=== PATIENT | male | born 1950 | race Caucasian/White ===

== ENCOUNTER 2022-10-01 15:31 | Inpatient (IN) | payer MEDICARE ==
[2022-10-01] MEDS ORDERED: Diltiazem 125 MG/25 ML ONE (16:00)
[2022-10-01 16:25] LABS: #Basophils 0.1 thou/uL (0.0-0.2); #Eosinphils 0.2 thou/uL (0.0-0.7); #Lymphocytes 1.7 thou/uL (1.20-3.40); #Monocytes 0.8 thou/uL (0.11-0.59); %Basophils 0.8 % (0.0-1.0); %Eosinophils 2.2 % (0.0-10.0); %Lymphocytes 15.5 % (21.0-51.0); %Monocytes 7.5 % (0.0-10.0); Hemoglobin 12.5 g/dL (14.0-18.0); Mean Corpuscular HGB CONC 31.2 g/dL (32.0-36.0); Mean Corpuscular Hemoglobin 30.5 pg (27.0-31.0); Mean Platelet Volume 9.3 fL (7.4-10.4); Platelet Count 280 10x3/uL (130-400); RBC Distribution Width 15.8 % (11.5-14.5); Red Blood Cell (RBC) Count 4.08 mill/uL (4.70-6.10); White Blood Cell (WBC) Count 10.8 10x3/uL (4.8-10.8)
[2022-10-01 16:53] LABS: ALT (SGPT) 62 U/L (8-55); AST (SGOT) 43 U/L (5-34); Albumin 3.9 g/dL (3.4-4.8); Alkaline Phosphatase 150 U/L (40-110); Anion Gap 12 mmol/L (10-20); BUN (Urea Nitrogen) 17 mg/dL (8.4-25.7); Bilirubin, Total 1.8 mg/dL (0.2-1.2); CK (CPK) 22 U/L (30-200); Calc. Creatinine Clearance 0 mL/min (70-130); Calcium 9.4 mg/dL (7.8-10.44); Carbon Dioxide 28 mmol/L (23-31); Chloride 105 mmol/L (98-107); Estimated GFR 66; Globulin 3.5 g/dL (2.4-3.5); Glucose 148 mg/dL (80-115); Potassium 4.5 mmol/L (3.5-5.1); Protein, Total 7.4 g/dL (5.8-8.1); Sodium 140 mmol/L (136-145)
[2022-10-01] MEDS ORDERED: Bisacodyl 5 MG TAB PO PRN (17:50)
[2022-10-01] MEDS ORDERED: Acetaminophen 325 MG TAB PO PRN (17:50)
[2022-10-01] MEDS ORDERED: Ondansetron ODT 4 MG TAB PO PRN (17:50)
[2022-10-01] MEDS ORDERED: Guaifenesin DM 100-10/5 ML UDCUP PO PRN (17:50)
[2022-10-01] MEDS ORDERED: Ondansetron PF 4 MG/2 ML Vial IVP PRN (17:50)
[2022-10-01] MEDS ORDERED: Acetaminophen 650 MG Suppository PR PRN (17:50)
[2022-10-01] MEDS ORDERED: Senokot S 8.6-50 MG TAB PO PRN (17:50)
[2022-10-01] MEDS ORDERED: Diltiazem 125 MG in Sodium Chloride 0.9% 100 ML IVPB SCH (19:15)
[2022-10-01 19:49] LABS: Troponin I 0.018 ng/mL (< 0.028)
[2022-10-01] MEDS: Atorvastatin Calcium 40 MG TAB PO SCH (20:47)
[2022-10-01] MEDS ORDERED: Acetaminophen 325 MG TAB ONE (20:48)
[2022-10-01 21:47] LABS: SARS-CoV-2 NAA Rapid Test Not Detected (NotDetected)
[2022-10-01] MEDS ORDERED: Morphine 4 MG/ML VIAL SLOW IVP SCH (22:45)
[2022-10-01] MEDS ORDERED: Morphine 4 MG/ML VIAL ONE (22:47)
[2022-10-01 23:27] LABS: Troponin I 0.026 ng/mL (< 0.028)
[2022-10-02] MEDS ORDERED: traMADol HCl 50 MG TAB ONE ×3 (02:43→12:54)
[2022-10-02] MEDS: traMADol HCl 50 MG TAB PO PRN ×4 (02:46→23:53)
[2022-10-02 04:52] LABS: Bilirubin Negative (Negative); Blood, Urine 3+ (Negative); Clarity Extra Turbid (Clear); Glucose, Urine (Dipstick) Normal (Negative); Ketone, Urine Negative (Negative); Leukocyte 500 Leu/uL (Negative); Nitrite Negative (Negative); Protein, Urine (Dipstick) 20 mg/dL (Neg-Trace); Specific Gravity, Urine 1.013 (1.002-1.036); Squamous Epithelial None Seen HPF (0-3); Urobilinogen Normal mg/dL (Less than 2)
[2022-10-02 04:56] LABS: RBC/HPF 0-3 HPF (0-3)
[2022-10-02 04:57] LABS: Bacteria/HPF 3+ HPF (None Seen); Yeast-Hyphae 2+ HPF (None Seen)
[2022-10-02 07:14] LABS: ALT (SGPT) 44 U/L (8-55); AST (SGOT) 26 U/L (5-34); Albumin 3.2 g/dL (3.4-4.8); Alkaline Phosphatase 125 U/L (40-110); Anion Gap 13 mmol/L (10-20); BUN (Urea Nitrogen) 14 mg/dL (8.4-25.7); Bilirubin, Total 1.6 mg/dL (0.2-1.2); Calc. Creatinine Clearance 0 mL/min (70-130); Calcium 8.8 mg/dL (7.8-10.44); Carbon Dioxide 18 mmol/L (23-31); Chloride 109 mmol/L (98-107); Estimated GFR 93; Glucose 86 mg/dL (80-115); Magnesium 1.8 mg/dL (1.6-2.6); Potassium 3.9 mmol/L (3.5-5.1); Protein, Total 6.2 g/dL (5.8-8.1); Sodium 136 mmol/L (136-145)
[2022-10-02 08:18] LABS: #Basophils 0.1 thou/uL (0.0-0.2); #Eosinphils 0.6 thou/uL (0.0-0.7); #Lymphocytes 1.9 thou/uL (1.20-3.40); #Monocytes 0.9 thou/uL (0.11-0.59); #Neutrophils 5.4 thou/uL (1.40-6.50); %Eosinophils 7.2 % (0.0-10.0); %Lymphocytes 21.6 % (21.0-51.0); %Neutrophils 60.3 % (42.0-75.0); Hemoglobin 11.5 g/dL (14.0-18.0); Mean Corpuscular HGB CONC 32.4 g/dL (32.0-36.0); Mean Corpuscular Hemoglobin 32.3 pg (27.0-31.0); Mean Corpuscular Volume 99.5 fl (78.0-98.0); Mean Platelet Volume 9.3 fL (7.4-10.4); Platelet Count 214 10x3/uL (130-400); RBC Distribution Width 15.6 % (11.5-14.5); Red Blood Cell (RBC) Count 3.58 mill/uL (4.70-6.10); White Blood Cell (WBC) Count 8.9 10x3/uL (4.8-10.8)
[2022-10-02] MEDS ORDERED: Aspirin Chewable 81 MG TAB ONE (08:41)
[2022-10-02] MEDS ORDERED: Metoprolol Tartrate 50 MG TAB ONE ×2 (08:41→08:44)
[2022-10-02] MEDS: Finasteride 5 MG TAB PO SCH (08:54)
[2022-10-02] MEDS: Aspirin 81 mg Enteric Coated Tablet PO SCH (08:54)
[2022-10-02] MEDS ORDERED: Metoprolol Tartrate 100 MG TAB PO SCH (09:00)
[2022-10-02] MEDS ORDERED: Sodium Chloride 0.9% 500 ML IV SCH (11:30)
[2022-10-02] MEDS: Metoprolol Tartrate 50 MG TAB PO SCH (23:54)
[2022-10-02] MEDS: Atorvastatin Calcium 40 MG TAB PO SCH (23:54)
[2022-10-03] MEDS: traMADol HCl 50 MG TAB PO PRN ×2 (06:40→20:03)
[2022-10-03] MEDS: Finasteride 5 MG TAB PO SCH (09:40)
[2022-10-03] MEDS: Metoprolol Tartrate 50 MG TAB PO SCH ×2 (09:41→20:03)
[2022-10-03] MEDS: Aspirin 81 mg Enteric Coated Tablet PO SCH (09:41)
[2022-10-03] MEDS: Atorvastatin Calcium 40 MG TAB PO SCH (20:03)
[2022-10-04] MEDS: Aspirin 81 mg Enteric Coated Tablet PO SCH (09:25)
[2022-10-04] MEDS: Finasteride 5 MG TAB PO SCH (09:25)
[2022-10-04] MEDS: Metoprolol Tartrate 50 MG TAB PO SCH (09:25)
[2022-10-04] MEDS ORDERED: Electrolyte Replacement Protocol 1 EACH FS SCH (10:00)
[2022-10-04] MEDS ORDERED: Magnesium 2 GM/50 ML(in water) 2 GM in Premix Bag 1 BAG IVPB SCH (12:00)
[2022-10-04 13:29] LABS: #Basophils 0.1 thou/uL (0.0-0.2); #Eosinphils 0.2 thou/uL (0.0-0.7); #Lymphocytes 1.2 thou/uL (1.20-3.40); #Neutrophils 8.6 thou/uL (1.40-6.50); %Basophils 0.5 % (0.0-1.0); %Eosinophils 2.2 % (0.0-10.0); %Lymphocytes 10.8 % (21.0-51.0); %Monocytes 9.1 % (0.0-10.0); %Neutrophils 77.4 % (42.0-75.0); Hemoglobin 12.5 g/dL (14.0-18.0); Mean Corpuscular HGB CONC 31.1 g/dL (32.0-36.0); Mean Corpuscular Hemoglobin 31.8 pg (27.0-31.0); Mean Platelet Volume 9.2 fL (7.4-10.4); Platelet Count 236 10x3/uL (130-400); RBC Distribution Width 15.6 % (11.5-14.5); Red Blood Cell (RBC) Count 3.92 mill/uL (4.70-6.10); White Blood Cell (WBC) Count 11.1 10x3/uL (4.8-10.8)
[2022-10-04 13:51] LABS: Anion Gap 17 mmol/L (10-20); BUN (Urea Nitrogen) 18 mg/dL (8.4-25.7); Calc. Creatinine Clearance 64 mL/min (70-130); Calcium 9.3 mg/dL (7.8-10.44); Carbon Dioxide 21 mmol/L (23-31); Chloride 100 mmol/L (98-107); Estimated GFR 71; Glucose 98 mg/dL (80-115); Potassium 4.2 mmol/L (3.5-5.1); Sodium 134 mmol/L (136-145)
[2022-10-04] MEDS: Metoprolol Tartrate 100 MG TAB PO SCH (20:27)
[2022-10-04] MEDS: Atorvastatin Calcium 40 MG TAB PO SCH (20:27)
[2022-10-05] MEDS: Acetaminophen 325 MG TAB PO PRN ×3 (04:20→18:24)
[2022-10-05 05:04] LABS: #Basophils 0.1 thou/uL (0.0-0.2); #Eosinphils 0.4 thou/uL (0.0-0.7); #Monocytes 1.2 thou/uL (0.11-0.59); #Neutrophils 6.1 thou/uL (1.40-6.50); %Basophils 0.5 % (0.0-1.0); %Eosinophils 3.6 % (0.0-10.0); %Neutrophils 62.9 % (42.0-75.0); Hemoglobin 12.2 g/dL (14.0-18.0); Mean Corpuscular HGB CONC 33.3 g/dL (32.0-36.0); Mean Corpuscular Hemoglobin 32.7 pg (27.0-31.0); Mean Corpuscular Volume 98.4 fl (78.0-98.0); Mean Platelet Volume 9.7 fL (7.4-10.4); Platelet Count 225 10x3/uL (130-400); RBC Distribution Width 15.2 % (11.5-14.5); Red Blood Cell (RBC) Count 3.73 mill/uL (4.70-6.10); White Blood Cell (WBC) Count 9.7 10x3/uL (4.8-10.8)
[2022-10-05 05:08] LABS: Anion Gap 16 mmol/L (10-20); BUN (Urea Nitrogen) 16 mg/dL (8.4-25.7); Calc. Creatinine Clearance 78 mL/min (70-130); Calcium 9.2 mg/dL (7.8-10.44); Carbon Dioxide 20 mmol/L (23-31); Chloride 104 mmol/L (98-107); Estimated GFR 90; Glucose 84 mg/dL (80-115); Phosphorus 3.2 mg/dL (2.3-4.7); Potassium 3.7 mmol/L (3.5-5.1); Sodium 136 mmol/L (136-145)
[2022-10-05] MEDS ORDERED: Morphine 4 MG/ML VIAL SLOW IVP SCH (06:00)
[2022-10-05] MEDS ORDERED: Magnesium 2 GM/50 ML(in water) 2 GM in Premix Bag 1 BAG IVPB SCH (08:00)
[2022-10-05] MEDS: Metoprolol Tartrate 100 MG TAB PO SCH ×2 (09:40→20:06)
[2022-10-05] MEDS: Finasteride 5 MG TAB PO SCH (09:40)
[2022-10-05] MEDS: Aspirin 81 mg Enteric Coated Tablet PO SCH (09:40)
[2022-10-05] MEDS ORDERED: Acetaminophen/Codeine 30-300mg Tablet PO PRN (10:02)
[2022-10-05] MEDS: Lidocaine 5% Patch TD SCH (10:32)
[2022-10-05] MEDS: traMADol HCl 50 MG TAB PO PRN ×2 (12:41→18:25)
[2022-10-05] MEDS: Atorvastatin Calcium 40 MG TAB PO SCH (20:06)
[2022-10-05] MEDS: Senokot S 8.6-50 MG TAB PO SCH (20:06)
[2022-10-05] MEDS: Cholecalciferol 1,000 UNITS (25 MCG) TAB PO SCH (20:06)
[2022-10-06] MEDS: Acetaminophen 325 MG TAB PO PRN ×2 (00:31→09:03)
[2022-10-06] MEDS: traMADol HCl 50 MG TAB PO PRN ×5 (00:32→23:55)
[2022-10-06] MEDS: Transdermal Patch Removal TOP SCH (00:36)
[2022-10-06] MEDS: Senokot S 8.6-50 MG TAB PO SCH ×2 (09:02→20:48)
[2022-10-06] MEDS: Finasteride 5 MG TAB PO SCH (09:02)
[2022-10-06] MEDS: Folic Acid 1 MG TAB PO SCH (09:02)
[2022-10-06] MEDS: Aspirin 81 mg Enteric Coated Tablet PO SCH (09:02)
[2022-10-06] MEDS: Cyanocobalamin (Vitamin B-12) 1,000 MCG TAB PO SCH (09:03)
[2022-10-06] MEDS: Metoprolol Tartrate 100 MG TAB PO SCH ×2 (09:03→20:49)
[2022-10-06] MEDS: Multivit, Therapeutic 1 TAB PO SCH (09:03)
[2022-10-06] MEDS: Lidocaine 5% Patch TD SCH (12:08)
[2022-10-06] MEDS ORDERED: Acetaminophen 325 MG Suppository PR PRN (14:47)
[2022-10-06] MEDS: Acetaminophen 325 MG TAB PO SCH ×2 (15:32→20:48)
[2022-10-06] MEDS ORDERED: Polyethylene Glycol 3350 17 GM Packet PO PRN (15:37)
[2022-10-06] MEDS: Nicotine 14 MG PATCH TD PRN (15:39)
[2022-10-06] MEDS: Atorvastatin Calcium 40 MG TAB PO SCH (20:49)
[2022-10-06] MEDS: Cholecalciferol 1,000 UNITS (25 MCG) TAB PO SCH (20:49)
[2022-10-07] MEDS: Transdermal Patch Removal TOP SCH ×2 (00:59→23:55)
[2022-10-07] MEDS ORDERED: Morphine 4 MG/ML VIAL SLOW IVP SCH (02:15)
[2022-10-07] MEDS: traMADol HCl 50 MG TAB PO PRN ×4 (04:16→19:02)
[2022-10-07] MEDS: Acetaminophen 325 MG TAB PO SCH ×3 (08:06→20:15)
[2022-10-07] MEDS: Cyanocobalamin (Vitamin B-12) 1,000 MCG TAB PO SCH (08:07)
[2022-10-07] MEDS: Finasteride 5 MG TAB PO SCH (08:07)
[2022-10-07] MEDS: Senokot S 8.6-50 MG TAB PO SCH ×2 (08:07→20:16)
[2022-10-07] MEDS: Multivit, Therapeutic 1 TAB PO SCH (08:07)
[2022-10-07] MEDS: Aspirin 81 mg Enteric Coated Tablet PO SCH (08:07)
[2022-10-07] MEDS: Metoprolol Tartrate 100 MG TAB PO SCH ×2 (08:08→20:16)
[2022-10-07] MEDS: Folic Acid 1 MG TAB PO SCH (08:08)
[2022-10-07] MEDS ORDERED: HYDROcodone/Acetaminophen 7.5/325 mg Tablet PO SCH ×2 (09:00→16:45)
[2022-10-07] MEDS: Lidocaine 5% Patch TD SCH (12:41)
[2022-10-07] MEDS: Nicotine 14 MG PATCH TD PRN (15:50)
[2022-10-07] MEDS: Cholecalciferol 1,000 UNITS (25 MCG) TAB PO SCH (20:16)
[2022-10-07] MEDS: Atorvastatin Calcium 40 MG TAB PO SCH (20:16)
[2022-10-08] MEDS: traMADol HCl 50 MG TAB PO PRN ×4 (05:14→21:27)
[2022-10-08] MEDS: Cyanocobalamin (Vitamin B-12) 1,000 MCG TAB PO SCH (09:30)
[2022-10-08] MEDS: Acetaminophen 325 MG TAB PO SCH ×3 (09:31→21:24)
[2022-10-08] MEDS: Finasteride 5 MG TAB PO SCH (09:32)
[2022-10-08] MEDS: Metoprolol Tartrate 100 MG TAB PO SCH ×2 (09:32→21:23)
[2022-10-08] MEDS: Aspirin 81 mg Enteric Coated Tablet PO SCH (09:32)
[2022-10-08] MEDS: Folic Acid 1 MG TAB PO SCH (09:32)
[2022-10-08] MEDS: Multivit, Therapeutic 1 TAB PO SCH (09:32)
[2022-10-08] MEDS: Senokot S 8.6-50 MG TAB PO SCH ×2 (09:33→21:24)
[2022-10-08] MEDS: Lidocaine 5% Patch TD SCH (12:00)
[2022-10-08] MEDS: Bisacodyl 10 MG SUPP PR PRN (12:05)
[2022-10-08] MEDS: Polyethylene Glycol 3350 17 GM Packet PO SCH (21:23)
[2022-10-08] MEDS: Cholecalciferol 1,000 UNITS (25 MCG) TAB PO SCH (21:23)
[2022-10-08] MEDS: Atorvastatin Calcium 40 MG TAB PO SCH (21:23)
[2022-10-08] MEDS: Transdermal Patch Removal TOP SCH (22:59)
[2022-10-09] MEDS: traMADol HCl 50 MG TAB PO PRN ×4 (05:44→21:10)
[2022-10-09 07:23] LABS: Hemoglobin 12.7 g/dL (14.0-18.0); Mean Corpuscular HGB CONC 33.1 g/dL (32.0-36.0); Mean Corpuscular Hemoglobin 32.2 pg (27.0-31.0); Mean Corpuscular Volume 97.3 fl (78.0-98.0); Mean Platelet Volume 9.7 fL (7.4-10.4); Platelet Count 253 10x3/uL (130-400); RBC Distribution Width 15.3 % (11.5-14.5); Red Blood Cell (RBC) Count 3.94 mill/uL (4.70-6.10); White Blood Cell (WBC) Count 10.8 10x3/uL (4.8-10.8)
[2022-10-09 07:40] LABS: Anion Gap 16 mmol/L (10-20); BUN (Urea Nitrogen) 20 mg/dL (8.4-25.7); Calc. Creatinine Clearance 66 mL/min (70-130); Calcium 9.4 mg/dL (7.8-10.44); Carbon Dioxide 21 mmol/L (23-31); Chloride 104 mmol/L (98-107); Estimated GFR 73; Glucose 99 mg/dL (80-115); Sodium 137 mmol/L (136-145)
[2022-10-09] MEDS: Acetaminophen 325 MG TAB PO SCH ×3 (08:36→21:05)
[2022-10-09] MEDS: Finasteride 5 MG TAB PO SCH (08:37)
[2022-10-09] MEDS: Folic Acid 1 MG TAB PO SCH (08:37)
[2022-10-09] MEDS: Aspirin 81 mg Enteric Coated Tablet PO SCH (08:37)
[2022-10-09] MEDS: Senokot S 8.6-50 MG TAB PO SCH ×2 (08:37→21:05)
[2022-10-09] MEDS: Metoprolol Tartrate 100 MG TAB PO SCH ×2 (08:37→21:08)
[2022-10-09] MEDS: Multivit, Therapeutic 1 TAB PO SCH (08:37)
[2022-10-09] MEDS: Cyanocobalamin (Vitamin B-12) 1,000 MCG TAB PO SCH (08:37)
[2022-10-09] MEDS: Polyethylene Glycol 3350 17 GM Packet PO SCH ×2 (08:38→21:04)
[2022-10-09] MEDS: Lidocaine 5% Patch TD SCH (12:34)
[2022-10-09] MEDS: Atorvastatin Calcium 40 MG TAB PO SCH (21:07)
[2022-10-09] MEDS: Cholecalciferol 1,000 UNITS (25 MCG) TAB PO SCH (21:08)
[2022-10-09] MEDS: Nicotine 14 MG PATCH TD PRN (21:10)
[2022-10-10] MEDS: Transdermal Patch Removal TOP SCH ×2 (00:34→21:59)
[2022-10-10] MEDS: traMADol HCl 50 MG TAB PO PRN ×3 (02:03→17:33)
[2022-10-10] MEDS: Acetaminophen 325 MG TAB PO SCH ×3 (09:48→21:19)
[2022-10-10] MEDS: Aspirin 81 mg Enteric Coated Tablet PO SCH (09:48)
[2022-10-10] MEDS: Senokot S 8.6-50 MG TAB PO SCH ×2 (09:49→20:44)
[2022-10-10] MEDS: Multivit, Therapeutic 1 TAB PO SCH (09:49)
[2022-10-10] MEDS: Metoprolol Tartrate 100 MG TAB PO SCH ×2 (09:49→20:43)
[2022-10-10] MEDS: Folic Acid 1 MG TAB PO SCH (09:49)
[2022-10-10] MEDS: Finasteride 5 MG TAB PO SCH (09:49)
[2022-10-10] MEDS: Cyanocobalamin (Vitamin B-12) 1,000 MCG TAB PO SCH (09:50)
[2022-10-10] MEDS: Lidocaine 5% Patch TD SCH (09:50)
[2022-10-10] MEDS ORDERED: Morphine 4 MG/ML VIAL SLOW IVP SCH (12:45)
[2022-10-10] MEDS: Atorvastatin Calcium 40 MG TAB PO SCH (20:43)
[2022-10-10] MEDS: Cholecalciferol 1,000 UNITS (25 MCG) TAB PO SCH (20:44)
[2022-10-10] MEDS: Polyethylene Glycol 3350 17 GM Packet PO PRN (20:45)
[2022-10-10] MEDS: HYDROcodone/Acetaminophen 5/325 mg Tablet PO PRN (21:04)
[2022-10-10] MEDS: Nicotine 14 MG PATCH TD PRN (21:11)
[2022-10-11] MEDS: traMADol HCl 50 MG TAB PO PRN (00:25)
[2022-10-11] MEDS: HYDROcodone/Acetaminophen 5/325 mg Tablet PO PRN ×3 (02:45→17:18)
[2022-10-11] MEDS ORDERED: Morphine 4 MG/ML VIAL SLOW IVP SCH (03:45)
[2022-10-11 05:24] LABS: #Basophils 0.1 thou/uL (0.0-0.2); #Eosinphils 0.6 thou/uL (0.0-0.7); #Lymphocytes 2.8 thou/uL (1.20-3.40); #Neutrophils 6.4 thou/uL (1.40-6.50); %Basophils 0.5 % (0.0-1.0); %Eosinophils 5.6 % (0.0-10.0); %Lymphocytes 25.8 % (21.0-51.0); %Monocytes 9.5 % (0.0-10.0); %Neutrophils 58.7 % (42.0-75.0); Hemoglobin 12.4 g/dL (14.0-18.0); Mean Corpuscular HGB CONC 32.3 g/dL (32.0-36.0); Mean Corpuscular Hemoglobin 31.6 pg (27.0-31.0); Mean Corpuscular Volume 97.8 fl (78.0-98.0); Mean Platelet Volume 9.3 fL (7.4-10.4); Platelet Count 226 10x3/uL (130-400); RBC Distribution Width 15.2 % (11.5-14.5); Red Blood Cell (RBC) Count 3.93 mill/uL (4.70-6.10); White Blood Cell (WBC) Count 10.9 10x3/uL (4.8-10.8)
[2022-10-11 05:45] LABS: ALT (SGPT) 14 U/L (8-55); AST (SGOT) 14 U/L (5-34); Albumin 3.6 g/dL (3.4-4.8); Alkaline Phosphatase 97 U/L (40-110); Anion Gap 13 mmol/L (10-20); BUN (Urea Nitrogen) 28 mg/dL (8.4-25.7); Bilirubin, Total 0.9 mg/dL (0.2-1.2); Calc. Creatinine Clearance 65 mL/min (70-130); Calcium 9.4 mg/dL (7.8-10.44); Carbon Dioxide 22 mmol/L (23-31); Chloride 105 mmol/L (98-107); Estimated GFR 73; Globulin 3.2 g/dL (2.4-3.5); Glucose 94 mg/dL (80-115); Potassium 4.1 mmol/L (3.5-5.1); Protein, Total 6.8 g/dL (5.8-8.1); Sodium 136 mmol/L (136-145)
[2022-10-11] MEDS: Aspirin 81 mg Enteric Coated Tablet PO SCH (09:21)
[2022-10-11] MEDS: Multivit, Therapeutic 1 TAB PO SCH (09:21)
[2022-10-11] MEDS: Acetaminophen 325 MG TAB PO SCH ×3 (09:21→20:27)
[2022-10-11] MEDS: Finasteride 5 MG TAB PO SCH (09:21)
[2022-10-11] MEDS: Folic Acid 1 MG TAB PO SCH (09:21)
[2022-10-11] MEDS: Metoprolol Tartrate 100 MG TAB PO SCH ×2 (09:21→20:28)
[2022-10-11] MEDS: Cilostazol 100 MG TAB PO SCH (09:21)
[2022-10-11] MEDS: Cyanocobalamin (Vitamin B-12) 1,000 MCG TAB PO SCH (09:21)
[2022-10-11] MEDS: Polyethylene Glycol 3350 17 GM Packet PO PRN (09:21)
[2022-10-11] MEDS: Senokot S 8.6-50 MG TAB PO SCH ×2 (09:21→20:27)
[2022-10-11] MEDS: Morphine 4 MG/ML VIAL SLOW IVP PRN ×2 (12:10→20:28)
[2022-10-11] MEDS: Lidocaine 5% Patch TD SCH (12:12)
[2022-10-11] MEDS: Nicotine 14 MG PATCH TD PRN (20:26)
[2022-10-11] MEDS: Cholecalciferol 1,000 UNITS (25 MCG) TAB PO SCH (20:27)
[2022-10-11] MEDS: Atorvastatin Calcium 40 MG TAB PO SCH (20:28)
[2022-10-11] MEDS: Transdermal Patch Removal TOP SCH (23:24)
[2022-10-12] MEDS: HYDROcodone/Acetaminophen 5/325 mg Tablet PO PRN ×4 (01:34→20:27)
[2022-10-12] MEDS: Morphine 4 MG/ML VIAL SLOW IVP PRN ×2 (04:22→12:13)
[2022-10-12] MEDS: Lidocaine 5% Patch TD SCH (07:50)
[2022-10-12] MEDS: Cilostazol 100 MG TAB PO SCH (08:06)
[2022-10-12] MEDS: Finasteride 5 MG TAB PO SCH (08:06)
[2022-10-12] MEDS: Polyethylene Glycol 3350 17 GM Packet PO PRN (08:06)
[2022-10-12] MEDS: Aspirin 81 mg Enteric Coated Tablet PO SCH (08:06)
[2022-10-12] MEDS: Acetaminophen 325 MG TAB PO SCH ×3 (08:06→20:26)
[2022-10-12] MEDS: Cyanocobalamin (Vitamin B-12) 1,000 MCG TAB PO SCH (08:07)
[2022-10-12] MEDS: Multivit, Therapeutic 1 TAB PO SCH (08:07)
[2022-10-12] MEDS: Folic Acid 1 MG TAB PO SCH (08:07)
[2022-10-12] MEDS: Senokot S 8.6-50 MG TAB PO SCH ×2 (08:07→20:25)
[2022-10-12] MEDS: Metoprolol Tartrate 100 MG TAB PO SCH ×2 (08:07→20:25)
[2022-10-12] MEDS: Cholecalciferol 1,000 UNITS (25 MCG) TAB PO SCH (20:26)
[2022-10-12] MEDS: Atorvastatin Calcium 40 MG TAB PO SCH (20:29)
[2022-10-12] MEDS: Nicotine 14 MG PATCH TD PRN (20:33)
[2022-10-13] MEDS: Morphine 4 MG/ML VIAL SLOW IVP PRN ×3 (00:44→20:30)
[2022-10-13] MEDS: Transdermal Patch Removal TOP SCH ×2 (01:05→19:21)
[2022-10-13] MEDS: HYDROcodone/Acetaminophen 5/325 mg Tablet PO PRN ×2 (06:35→12:56)
[2022-10-13] MEDS: Acetaminophen 325 MG TAB PO SCH ×3 (08:33→20:05)
[2022-10-13] MEDS: Cilostazol 100 MG TAB PO SCH (08:33)
[2022-10-13] MEDS: Aspirin 81 mg Enteric Coated Tablet PO SCH (08:33)
[2022-10-13] MEDS: Finasteride 5 MG TAB PO SCH (08:34)
[2022-10-13] MEDS: Metoprolol Tartrate 100 MG TAB PO SCH ×2 (08:34→20:04)
[2022-10-13] MEDS: Cyanocobalamin (Vitamin B-12) 1,000 MCG TAB PO SCH (08:34)
[2022-10-13] MEDS: Multivit, Therapeutic 1 TAB PO SCH (08:34)
[2022-10-13] MEDS: Folic Acid 1 MG TAB PO SCH (08:34)
[2022-10-13] MEDS: Senokot S 8.6-50 MG TAB PO SCH ×2 (08:35→19:20)
[2022-10-13] MEDS: Lidocaine 5% Patch TD SCH (10:14)
[2022-10-13] MEDS: Nicotine 14 MG PATCH TD PRN (20:03)
[2022-10-13] MEDS: Cholecalciferol 1,000 UNITS (25 MCG) TAB PO SCH (20:04)
[2022-10-13] MEDS: Atorvastatin Calcium 40 MG TAB PO SCH (20:04)
[2022-10-13] MEDS ORDERED: Morphine 4 MG/ML VIAL SLOW IVP SCH (21:45)
[2022-10-14] MEDS: Senokot S 8.6-50 MG TAB PO SCH ×2 (08:45→21:16)
[2022-10-14] MEDS: Lidocaine 5% Patch TD SCH (08:45)
[2022-10-14] MEDS: Morphine 4 MG/ML VIAL SLOW IVP PRN ×3 (08:46→19:05)
[2022-10-14] MEDS: Cyanocobalamin (Vitamin B-12) 1,000 MCG TAB PO SCH (08:47)
[2022-10-14] MEDS: Aspirin 81 mg Enteric Coated Tablet PO SCH (08:47)
[2022-10-14] MEDS: Cilostazol 100 MG TAB PO SCH (08:47)
[2022-10-14] MEDS: Acetaminophen 325 MG TAB PO SCH ×2 (08:47→16:00)
[2022-10-14] MEDS: Finasteride 5 MG TAB PO SCH (08:47)
[2022-10-14] MEDS: Multivit, Therapeutic 1 TAB PO SCH (08:47)
[2022-10-14] MEDS: Folic Acid 1 MG TAB PO SCH (08:47)
[2022-10-14] MEDS: Metoprolol Tartrate 100 MG TAB PO SCH ×2 (08:48→21:16)
[2022-10-14] MEDS ORDERED: HYDROcodone/Acetaminophen 5/325 mg Tablet PO SCH (18:30)
[2022-10-14] MEDS: Nicotine 14 MG PATCH TD SCH (21:14)
[2022-10-14] MEDS: HYDROcodone/Acetaminophen 5/325 mg Tablet PO PRN (21:15)
[2022-10-14] MEDS: Cholecalciferol 1,000 UNITS (25 MCG) TAB PO SCH (21:15)
[2022-10-14] MEDS: Atorvastatin Calcium 40 MG TAB PO SCH (21:16)
[2022-10-14] MEDS: Transdermal Patch Removal TOP SCH (21:20)
[2022-10-15] MEDS: HYDROcodone/Acetaminophen 5/325 mg Tablet PO PRN ×3 (01:07→16:15)
[2022-10-15] MEDS: Morphine 4 MG/ML VIAL SLOW IVP PRN ×3 (04:30→21:03)
[2022-10-15] MEDS: Cilostazol 100 MG TAB PO SCH (08:22)
[2022-10-15] MEDS: Cyanocobalamin (Vitamin B-12) 1,000 MCG TAB PO SCH (08:22)
[2022-10-15] MEDS: Finasteride 5 MG TAB PO SCH (08:22)
[2022-10-15] MEDS: Aspirin 81 mg Enteric Coated Tablet PO SCH (08:22)
[2022-10-15] MEDS: Multivit, Therapeutic 1 TAB PO SCH (08:22)
[2022-10-15] MEDS: Metoprolol Tartrate 100 MG TAB PO SCH ×2 (08:22→21:04)
[2022-10-15] MEDS: Folic Acid 1 MG TAB PO SCH (08:22)
[2022-10-15] MEDS: Senokot S 8.6-50 MG TAB PO SCH ×2 (09:30→21:04)
[2022-10-15] MEDS: Lidocaine 5% Patch TD SCH (11:50)
[2022-10-15] MEDS: Transdermal Patch Removal TOP SCH (20:33)
[2022-10-15] MEDS: Atorvastatin Calcium 40 MG TAB PO SCH (21:04)
[2022-10-15] MEDS: Cholecalciferol 1,000 UNITS (25 MCG) TAB PO SCH (21:04)
[2022-10-15] MEDS: Nicotine 14 MG PATCH TD SCH (21:04)
[2022-10-16] MEDS: HYDROcodone/Acetaminophen 5/325 mg Tablet PO PRN ×5 (01:40→19:07)
[2022-10-16] MEDS: Cilostazol 100 MG TAB PO SCH (08:26)
[2022-10-16] MEDS: Aspirin 81 mg Enteric Coated Tablet PO SCH (08:27)
[2022-10-16] MEDS: Finasteride 5 MG TAB PO SCH (08:27)
[2022-10-16] MEDS: Cyanocobalamin (Vitamin B-12) 1,000 MCG TAB PO SCH (08:27)
[2022-10-16] MEDS: Senokot S 8.6-50 MG TAB PO SCH ×2 (08:27→20:59)
[2022-10-16] MEDS: Metoprolol Tartrate 100 MG TAB PO SCH ×2 (08:27→20:59)
[2022-10-16] MEDS: Folic Acid 1 MG TAB PO SCH (08:27)
[2022-10-16] MEDS: Multivit, Therapeutic 1 TAB PO SCH (08:27)
[2022-10-16] MEDS: Lidocaine 5% Patch TD SCH (11:06)
[2022-10-16] MEDS: Transdermal Patch Removal TOP SCH (20:59)
[2022-10-16] MEDS: Atorvastatin Calcium 40 MG TAB PO SCH (20:59)
[2022-10-16] MEDS: Cholecalciferol 1,000 UNITS (25 MCG) TAB PO SCH (20:59)
[2022-10-16] MEDS: Morphine 4 MG/ML VIAL SLOW IVP PRN (20:59)
[2022-10-16] MEDS: Nicotine 14 MG PATCH TD SCH (20:59)
[2022-10-17] MEDS: Morphine 4 MG/ML VIAL SLOW IVP PRN ×3 (05:05→19:21)
[2022-10-17] MEDS: HYDROcodone/Acetaminophen 5/325 mg Tablet PO PRN ×4 (06:17→23:10)
[2022-10-17] MEDS: Aspirin 81 mg Enteric Coated Tablet PO SCH (09:02)
[2022-10-17] MEDS: Metoprolol Tartrate 100 MG TAB PO SCH ×2 (09:02→20:58)
[2022-10-17] MEDS: Multivit, Therapeutic 1 TAB PO SCH (09:02)
[2022-10-17] MEDS: Folic Acid 1 MG TAB PO SCH (09:02)
[2022-10-17] MEDS: Finasteride 5 MG TAB PO SCH (09:02)
[2022-10-17] MEDS: Senokot S 8.6-50 MG TAB PO SCH ×2 (09:02→20:58)
[2022-10-17] MEDS: Cilostazol 100 MG TAB PO SCH (09:02)
[2022-10-17] MEDS: Cyanocobalamin (Vitamin B-12) 1,000 MCG TAB PO SCH (09:02)
[2022-10-17] MEDS: Lidocaine 5% Patch TD SCH (11:09)
[2022-10-17] MEDS: Nicotine 14 MG PATCH TD SCH (19:20)
[2022-10-17] MEDS: Cholecalciferol 1,000 UNITS (25 MCG) TAB PO SCH (20:58)
[2022-10-17] MEDS: Atorvastatin Calcium 40 MG TAB PO SCH (20:58)
[2022-10-17] MEDS: Transdermal Patch Removal TOP SCH (21:02)
[2022-10-18] MEDS: HYDROcodone/Acetaminophen 5/325 mg Tablet PO PRN ×3 (03:49→20:05)
[2022-10-18] MEDS: Morphine 4 MG/ML VIAL SLOW IVP PRN ×3 (04:32→19:59)
[2022-10-18] MEDS: Multivit, Therapeutic 1 TAB PO SCH (09:50)
[2022-10-18] MEDS: Metoprolol Tartrate 100 MG TAB PO SCH ×2 (09:50→20:04)
[2022-10-18] MEDS: Cyanocobalamin (Vitamin B-12) 1,000 MCG TAB PO SCH (09:50)
[2022-10-18] MEDS: Senokot S 8.6-50 MG TAB PO SCH ×2 (09:50→20:41)
[2022-10-18] MEDS: Cilostazol 100 MG TAB PO SCH (09:50)
[2022-10-18] MEDS: Folic Acid 1 MG TAB PO SCH (09:50)
[2022-10-18] MEDS: Aspirin 81 mg Enteric Coated Tablet PO SCH (09:50)
[2022-10-18] MEDS: Finasteride 5 MG TAB PO SCH (09:50)
[2022-10-18] MEDS: Lidocaine 5% Patch TD SCH (09:52)
[2022-10-18] MEDS: Nicotine 14 MG PATCH TD SCH (20:05)
[2022-10-18] MEDS: Cholecalciferol 1,000 UNITS (25 MCG) TAB PO SCH (20:06)
[2022-10-18] MEDS: Atorvastatin Calcium 40 MG TAB PO SCH (20:06)
[2022-10-18] MEDS: Transdermal Patch Removal TOP SCH (23:58)
[2022-10-19] MEDS: HYDROcodone/Acetaminophen 5/325 mg Tablet PO PRN ×5 (01:43→22:07)
[2022-10-19] MEDS: Morphine 4 MG/ML VIAL SLOW IVP PRN ×5 (01:45→20:43)
[2022-10-19] MEDS ORDERED: Sodium Chloride 0.9% 500 ML IV SCH (06:45)
[2022-10-19 07:15] LABS: Anion Gap 15 mmol/L (10-20); BUN (Urea Nitrogen) 23 mg/dL (8.4-25.7); Calc. Creatinine Clearance 63 mL/min (70-130); Calcium 9.6 mg/dL (7.8-10.44); Carbon Dioxide 19 mmol/L (23-31); Chloride 106 mmol/L (98-107); Estimated GFR 70; Glucose 96 mg/dL (80-115); Magnesium 1.8 mg/dL (1.6-2.6); Potassium 4.6 mmol/L (3.5-5.1); Sodium 135 mmol/L (136-145)
[2022-10-19] MEDS: Lidocaine 5% Patch TD SCH (07:50)
[2022-10-19] MEDS ORDERED: Magnesium 2 GM/50 ML(in water) 2 GM in Premix Bag 1 BAG IVPB SCH (08:00)
[2022-10-19] MEDS: Cilostazol 100 MG TAB PO SCH ×2 (08:03→08:04)
[2022-10-19] MEDS: Multivit, Therapeutic 1 TAB PO SCH (08:03)
[2022-10-19] MEDS: Aspirin 81 mg Enteric Coated Tablet PO SCH (08:03)
[2022-10-19] MEDS: Senokot S 8.6-50 MG TAB PO SCH ×2 (08:03→08:04)
[2022-10-19] MEDS: Metoprolol Tartrate 100 MG TAB PO SCH ×2 (08:04→20:43)
[2022-10-19] MEDS: Finasteride 5 MG TAB PO SCH (08:04)
[2022-10-19] MEDS: Folic Acid 1 MG TAB PO SCH (12:24)
[2022-10-19] MEDS: Cyanocobalamin (Vitamin B-12) 1,000 MCG TAB PO SCH (12:24)
[2022-10-19] MEDS: Nicotine 14 MG PATCH TD SCH (20:42)
[2022-10-19] MEDS: Atorvastatin Calcium 40 MG TAB PO SCH (20:43)
[2022-10-19] MEDS: Transdermal Patch Removal TOP SCH (20:43)
[2022-10-19] MEDS: Cholecalciferol 1,000 UNITS (25 MCG) TAB PO SCH (20:43)
[2022-10-20] MEDS: Morphine 4 MG/ML VIAL SLOW IVP PRN ×4 (01:59→19:57)
[2022-10-20] MEDS: HYDROcodone/Acetaminophen 5/325 mg Tablet PO PRN ×4 (05:19→21:52)
[2022-10-20] MEDS: Lidocaine 5% Patch TD SCH (07:16)
[2022-10-20] MEDS: Senokot S 8.6-50 MG TAB PO SCH ×2 (08:04→19:57)
[2022-10-20] MEDS: Folic Acid 1 MG TAB PO SCH (08:04)
[2022-10-20] MEDS: Aspirin 81 mg Enteric Coated Tablet PO SCH (08:04)
[2022-10-20] MEDS: Finasteride 5 MG TAB PO SCH (08:04)
[2022-10-20] MEDS: Cyanocobalamin (Vitamin B-12) 1,000 MCG TAB PO SCH (08:04)
[2022-10-20] MEDS: Cilostazol 100 MG TAB PO SCH (08:04)
[2022-10-20] MEDS: Multivit, Therapeutic 1 TAB PO SCH (08:04)
[2022-10-20] MEDS: Metoprolol Tartrate 100 MG TAB PO SCH ×2 (08:04→19:56)
[2022-10-20] MEDS: Nicotine 14 MG PATCH TD SCH (19:56)
[2022-10-20] MEDS: Atorvastatin Calcium 40 MG TAB PO SCH (19:57)
[2022-10-20] MEDS: Transdermal Patch Removal TOP SCH (19:57)
[2022-10-20] MEDS: Cholecalciferol 1,000 UNITS (25 MCG) TAB PO SCH (19:57)
[2022-10-21] MEDS: Morphine 4 MG/ML VIAL SLOW IVP PRN ×4 (00:49→21:56)
[2022-10-21] MEDS: HYDROcodone/Acetaminophen 5/325 mg Tablet PO PRN ×3 (04:24→21:55)
[2022-10-21] MEDS: Senokot S 8.6-50 MG TAB PO SCH ×2 (07:52→21:54)
[2022-10-21] MEDS: Cilostazol 100 MG TAB PO SCH (07:52)
[2022-10-21] MEDS: Multivit, Therapeutic 1 TAB PO SCH (07:52)
[2022-10-21] MEDS: Metoprolol Tartrate 100 MG TAB PO SCH ×2 (07:53→21:53)
[2022-10-21] MEDS: Cyanocobalamin (Vitamin B-12) 1,000 MCG TAB PO SCH (07:53)
[2022-10-21] MEDS: Folic Acid 1 MG TAB PO SCH (07:53)
[2022-10-21] MEDS: Aspirin 81 mg Enteric Coated Tablet PO SCH (07:53)
[2022-10-21] MEDS: Finasteride 5 MG TAB PO SCH (07:53)
[2022-10-21] MEDS: Lidocaine 5% Patch TD SCH (11:14)
[2022-10-21] MEDS: Atorvastatin Calcium 40 MG TAB PO SCH (21:54)
[2022-10-21] MEDS: Cholecalciferol 1,000 UNITS (25 MCG) TAB PO SCH (21:55)
[2022-10-21] MEDS: Nicotine 14 MG PATCH TD SCH (21:55)
[2022-10-21] MEDS: Transdermal Patch Removal TOP SCH (21:58)
[2022-10-22] MEDS: Morphine 4 MG/ML VIAL SLOW IVP PRN ×2 (02:19→09:59)
[2022-10-22] MEDS: HYDROcodone/Acetaminophen 5/325 mg Tablet PO PRN ×3 (02:19→21:04)
[2022-10-22 05:35] LABS: #Basophils 0.1 thou/uL (0.0-0.2); #Eosinphils 0.6 thou/uL (0.0-0.7); #Lymphocytes 2.2 thou/uL (1.20-3.40); #Neutrophils 6.4 thou/uL (1.40-6.50); %Basophils 0.7 % (0.0-1.0); %Eosinophils 5.8 % (0.0-10.0); %Lymphocytes 21.7 % (21.0-51.0); %Monocytes 9.3 % (0.0-10.0); %Neutrophils 62.6 % (42.0-75.0); Hemoglobin 11.2 g/dL (14.0-18.0); Mean Corpuscular HGB CONC 34.7 g/dL (32.0-36.0); Mean Corpuscular Hemoglobin 33.3 pg (27.0-31.0); Mean Corpuscular Volume 95.8 fl (78.0-98.0); Mean Platelet Volume 8.8 fL (7.4-10.4); Platelet Count 295 10x3/uL (130-400); RBC Distribution Width 14.4 % (11.5-14.5); Red Blood Cell (RBC) Count 3.38 mill/uL (4.70-6.10); White Blood Cell (WBC) Count 10.3 10x3/uL (4.8-10.8)
[2022-10-22 05:37] LABS: ALT (SGPT) 9 U/L (8-55); AST (SGOT) 12 U/L (5-34); Albumin 3.4 g/dL (3.4-4.8); Alkaline Phosphatase 83 U/L (40-110); Anion Gap 14 mmol/L (10-20); BUN (Urea Nitrogen) 22 mg/dL (8.4-25.7); Bilirubin, Total 0.8 mg/dL (0.2-1.2); Calc. Creatinine Clearance 66 mL/min (70-130); Calcium 9.4 mg/dL (7.8-10.44); Carbon Dioxide 22 mmol/L (23-31); Chloride 103 mmol/L (98-107); Estimated GFR 74; Globulin 3.3 g/dL (2.4-3.5); Glucose 107 mg/dL (80-115); Phosphorus 4.1 mg/dL (2.3-4.7); Protein, Total 6.7 g/dL (5.8-8.1); Sodium 135 mmol/L (136-145)
[2022-10-22 05:38] LABS: Magnesium 1.8 mg/dL (1.6-2.6)
[2022-10-22] MEDS ORDERED: Magnesium 2 GM/50 ML(in water) 2 GM in Premix Bag 1 BAG IVPB SCH (08:00)
[2022-10-22 08:30] LABS: Bacteria/HPF 4+ HPF (None Seen); RBC/HPF 0-3 HPF (0-3); Squamous Epithelial 0-3 HPF (0-3); WBC/HPF 21-50 HPF (0-3)
[2022-10-22] MEDS: Gabapentin 100 MG CAP PO SCH ×3 (10:00→21:03)
[2022-10-22] MEDS: Aspirin 81 mg Enteric Coated Tablet PO SCH (10:02)
[2022-10-22] MEDS: Cyanocobalamin (Vitamin B-12) 1,000 MCG TAB PO SCH (10:02)
[2022-10-22] MEDS: Multivit, Therapeutic 1 TAB PO SCH (10:02)
[2022-10-22] MEDS: Folic Acid 1 MG TAB PO SCH (10:03)
[2022-10-22] MEDS: Finasteride 5 MG TAB PO SCH (10:03)
[2022-10-22] MEDS: Metoprolol Tartrate 100 MG TAB PO SCH ×2 (10:04→21:02)
[2022-10-22] MEDS: Senokot S 8.6-50 MG TAB PO SCH ×2 (10:04→21:18)
[2022-10-22] MEDS ORDERED: Cilostazol 100 MG TAB PO SCH (10:15)
[2022-10-22] MEDS: Lidocaine 5% Patch TD SCH (12:38)
[2022-10-22] MEDS: Nicotine 14 MG PATCH TD SCH (21:03)
[2022-10-22] MEDS: Atorvastatin Calcium 40 MG TAB PO SCH (21:04)
[2022-10-22] MEDS: Cholecalciferol 1,000 UNITS (25 MCG) TAB PO SCH (21:04)
[2022-10-23] MEDS: Transdermal Patch Removal TOP SCH ×2 (00:13→20:52)
[2022-10-23] MEDS: HYDROcodone/Acetaminophen 5/325 mg Tablet PO PRN ×3 (08:13→21:17)
[2022-10-23] MEDS: Folic Acid 1 MG TAB PO SCH (09:05)
[2022-10-23] MEDS: Gabapentin 100 MG CAP PO SCH ×3 (09:05→20:22)
[2022-10-23] MEDS: Cilostazol 100 MG TAB PO SCH (09:05)
[2022-10-23] MEDS: Finasteride 5 MG TAB PO SCH (09:05)
[2022-10-23] MEDS: Aspirin 81 mg Enteric Coated Tablet PO SCH (09:05)
[2022-10-23] MEDS: Sodium Chloride 0.9% 1,000 ML IV SCH ×3 (09:05→21:15)
[2022-10-23] MEDS: Cyanocobalamin (Vitamin B-12) 1,000 MCG TAB PO SCH (09:05)
[2022-10-23] MEDS: Metoprolol Tartrate 100 MG TAB PO SCH ×2 (09:06→20:22)
[2022-10-23] MEDS: Multivit, Therapeutic 1 TAB PO SCH (09:06)
[2022-10-23] MEDS: Senokot S 8.6-50 MG TAB PO SCH ×2 (09:06→20:22)
[2022-10-23] MEDS ORDERED: Fentanyl 250 MCG/5 ML VIAL ONE (11:32)
[2022-10-23] MEDS ORDERED: SUGAMMADEX SODIUM 200 MG/2 ML VIAL ONE (11:32)
[2022-10-23] MEDS ORDERED: Lidocaine 1% PF 5 ML VIAL ONE (11:51)
[2022-10-23] MEDS ORDERED: Rocuronium Bromide 10 MG/ML (10ML VIAL) ONE (11:51)
[2022-10-23] MEDS ORDERED: PROPOFOL 200 MG/20 ML VIAL ONE (11:51)
[2022-10-23] MEDS ORDERED: PHENYLEPHRINE-NS 100 MCG/ML 10 ML SYRINGE ONE (11:51)
[2022-10-23] MEDS ORDERED: Ondansetron PF 4 MG/2 ML Vial ONE (11:51)
[2022-10-23] MEDS ORDERED: HYDROmorphone 2 MG/ML VIAL SLOW IVP PRN (12:12)
[2022-10-23] MEDS ORDERED: Promethazine HCl 25 MG/ML VIAL IVPB PRN (12:12)
[2022-10-23] MEDS ORDERED: Meperidine HCl/PF 25 MG/ML VIAL SLOW IVP PRN (12:12)
[2022-10-23] MEDS ORDERED: Fentanyl 100 MCG/2 ML VIAL ONE ×2 (12:50→13:19)
[2022-10-23] MEDS ORDERED: HYDROmorphone 0.5 MG/0.5 ML SYRINGE ONE (13:05)
[2022-10-23] MEDS: Lidocaine 5% Patch TD SCH (14:13)
[2022-10-23] MEDS: Morphine 2 MG/ML VIAL SLOW IVP PRN ×2 (20:18→23:43)
[2022-10-23] MEDS: Nicotine 14 MG PATCH TD SCH (20:21)
[2022-10-23] MEDS: Amoxicillin/Potassium Clav 500 MG TAB PO SCH (20:22)
[2022-10-23] MEDS: Atorvastatin Calcium 40 MG TAB PO SCH (20:22)
[2022-10-23] MEDS: Cholecalciferol 1,000 UNITS (25 MCG) TAB PO SCH (20:22)
[2022-10-23] MEDS ORDERED: Fentanyl 100 MCG/2 ML VIAL SLOW IVP SCH (22:00)
[2022-10-24] MEDS: HYDROcodone/Acetaminophen 5/325 mg Tablet PO PRN ×5 (01:39→18:41)
[2022-10-24] MEDS: Morphine 2 MG/ML VIAL SLOW IVP PRN ×5 (02:46→22:41)
[2022-10-24] MEDS ORDERED: Fentanyl 100 MCG/2 ML VIAL SLOW IVP SCH (04:21)
[2022-10-24 05:42] LABS: Anion Gap 13 mmol/L (10-20); BUN (Urea Nitrogen) 19 mg/dL (8.4-25.7); Calc. Creatinine Clearance 73 mL/min (70-130); Calcium 8.8 mg/dL (7.8-10.44); Carbon Dioxide 22 mmol/L (23-31); Chloride 106 mmol/L (98-107); Estimated GFR 83; Glucose 98 mg/dL (80-115); Potassium 3.7 mmol/L (3.5-5.1); Sodium 137 mmol/L (136-145)
[2022-10-24] MEDS: Sodium Chloride 0.9% 1,000 ML IV SCH ×2 (05:45→16:16)
[2022-10-24] MEDS: Cilostazol 100 MG TAB PO SCH (09:45)
[2022-10-24] MEDS: Amoxicillin/Potassium Clav 500 MG TAB PO SCH ×2 (09:45→22:38)
[2022-10-24] MEDS: Aspirin 81 mg Enteric Coated Tablet PO SCH (09:45)
[2022-10-24] MEDS: Multivit, Therapeutic 1 TAB PO SCH (09:46)
[2022-10-24] MEDS: Senokot S 8.6-50 MG TAB PO SCH ×2 (09:46→22:40)
[2022-10-24] MEDS: Finasteride 5 MG TAB PO SCH (09:46)
[2022-10-24] MEDS: Folic Acid 1 MG TAB PO SCH (09:46)
[2022-10-24] MEDS: Metoprolol Tartrate 100 MG TAB PO SCH ×2 (09:46→22:39)
[2022-10-24] MEDS: Gabapentin 100 MG CAP PO SCH ×3 (09:46→22:39)
[2022-10-24] MEDS: Cyanocobalamin (Vitamin B-12) 1,000 MCG TAB PO SCH (09:46)
[2022-10-24] MEDS: Lidocaine 5% Patch TD SCH (10:38)
[2022-10-24] MEDS: Nicotine 14 MG PATCH TD SCH (22:38)
[2022-10-24] MEDS: Atorvastatin Calcium 40 MG TAB PO SCH (22:38)
[2022-10-24] MEDS: Cholecalciferol 1,000 UNITS (25 MCG) TAB PO SCH (22:39)
[2022-10-24] MEDS: Transdermal Patch Removal TOP SCH (22:40)
[2022-10-25] MEDS: HYDROcodone/Acetaminophen 5/325 mg Tablet PO PRN ×4 (01:17→20:04)
[2022-10-25] MEDS: Sodium Chloride 0.9% 1,000 ML IV SCH ×3 (02:22→22:43)
[2022-10-25] MEDS: Morphine 2 MG/ML VIAL SLOW IVP PRN ×5 (02:25→22:48)
[2022-10-25] MEDS: Aspirin 81 mg Enteric Coated Tablet PO SCH (08:55)
[2022-10-25] MEDS: Amoxicillin/Potassium Clav 500 MG TAB PO SCH (08:55)
[2022-10-25] MEDS: Cyanocobalamin (Vitamin B-12) 1,000 MCG TAB PO SCH (08:56)
[2022-10-25] MEDS: Cilostazol 100 MG TAB PO SCH (08:56)
[2022-10-25] MEDS: Finasteride 5 MG TAB PO SCH (08:57)
[2022-10-25] MEDS: Folic Acid 1 MG TAB PO SCH (08:57)
[2022-10-25] MEDS: Gabapentin 100 MG CAP PO SCH ×3 (08:57→20:05)
[2022-10-25] MEDS: Multivit, Therapeutic 1 TAB PO SCH (08:58)
[2022-10-25] MEDS: Metoprolol Tartrate 100 MG TAB PO SCH ×2 (08:58→20:05)
[2022-10-25] MEDS: Senokot S 8.6-50 MG TAB PO SCH ×2 (08:59→20:15)
[2022-10-25] MEDS: Lidocaine 5% Patch TD SCH (09:54)
[2022-10-25] MEDS: Nicotine 14 MG PATCH TD SCH (20:05)
[2022-10-25] MEDS: Cholecalciferol 1,000 UNITS (25 MCG) TAB PO SCH (20:05)
[2022-10-25] MEDS: Atorvastatin Calcium 40 MG TAB PO SCH (20:05)
[2022-10-25] MEDS: Sulfameth/Trimethoprim DS 800-160mg TAB PO SCH (20:05)
[2022-10-25] MEDS: Transdermal Patch Removal TOP SCH (23:05)
[2022-10-26] MEDS: HYDROcodone/Acetaminophen 5/325 mg Tablet PO PRN ×4 (02:40→18:29)
[2022-10-26] MEDS: Morphine 2 MG/ML VIAL SLOW IVP PRN ×5 (04:14→21:09)
[2022-10-26] MEDS: Finasteride 5 MG TAB PO SCH (09:39)
[2022-10-26] MEDS: Aspirin 81 mg Enteric Coated Tablet PO SCH (09:39)
[2022-10-26] MEDS: Metoprolol Tartrate 100 MG TAB PO SCH ×2 (09:39→21:08)
[2022-10-26] MEDS: Cilostazol 100 MG TAB PO SCH (09:39)
[2022-10-26] MEDS: Multivit, Therapeutic 1 TAB PO SCH (09:39)
[2022-10-26] MEDS: Sulfameth/Trimethoprim DS 800-160mg TAB PO SCH ×2 (09:40→21:07)
[2022-10-26] MEDS: Gabapentin 100 MG CAP PO SCH ×3 (09:40→21:08)
[2022-10-26] MEDS: Folic Acid 1 MG TAB PO SCH (09:42)
[2022-10-26] MEDS: Cyanocobalamin (Vitamin B-12) 1,000 MCG TAB PO SCH (09:42)
[2022-10-26] MEDS: Sodium Chloride 0.9% 1,000 ML IV SCH (09:43)
[2022-10-26] MEDS: Senokot S 8.6-50 MG TAB PO SCH ×2 (09:43→21:16)
[2022-10-26] MEDS: Lidocaine 5% Patch TD SCH (10:32)
[2022-10-26] MEDS ORDERED: Diltiazem 125 MG in Sodium Chloride 0.9% 100 ML IVPB SCH (10:45)
[2022-10-26] MEDS: Cholecalciferol 1,000 UNITS (25 MCG) TAB PO SCH (21:07)
[2022-10-26] MEDS: Atorvastatin Calcium 40 MG TAB PO SCH (21:08)
[2022-10-26] MEDS: Nicotine 14 MG PATCH TD SCH (21:09)
[2022-10-27] MEDS: Transdermal Patch Removal TOP SCH ×2 (00:32→20:46)
[2022-10-27] MEDS: HYDROcodone/Acetaminophen 5/325 mg Tablet PO PRN ×5 (00:40→19:58)
[2022-10-27] MEDS: Morphine 2 MG/ML VIAL SLOW IVP PRN (02:23)
[2022-10-27] MEDS ORDERED: Apixaban 5 MG TAB PO SCH (09:00)
[2022-10-27] MEDS: Morphine 4 MG/ML VIAL SLOW IVP PRN ×3 (09:31→18:47)
[2022-10-27] MEDS: Metoprolol Tartrate 100 MG TAB PO SCH ×2 (09:41→19:50)
[2022-10-27] MEDS: Senokot S 8.6-50 MG TAB PO SCH ×2 (09:41→20:20)
[2022-10-27] MEDS: Aspirin 81 mg Enteric Coated Tablet PO SCH (09:41)
[2022-10-27] MEDS: Lidocaine 5% Patch TD SCH (09:41)
[2022-10-27] MEDS: Multivit, Therapeutic 1 TAB PO SCH (09:41)
[2022-10-27] MEDS: Cyanocobalamin (Vitamin B-12) 1,000 MCG TAB PO SCH (09:41)
[2022-10-27] MEDS: Finasteride 5 MG TAB PO SCH (09:41)
[2022-10-27] MEDS: Folic Acid 1 MG TAB PO SCH (09:41)
[2022-10-27] MEDS: Gabapentin 100 MG CAP PO SCH ×3 (09:41→19:50)
[2022-10-27] MEDS: Sulfameth/Trimethoprim DS 800-160mg TAB PO SCH ×2 (09:41→19:50)
[2022-10-27] MEDS ORDERED: Cyclobenzaprine 10 MG TAB PO SCH (17:00)
[2022-10-27] MEDS: Atorvastatin Calcium 40 MG TAB PO SCH (19:50)
[2022-10-27] MEDS: Cholecalciferol 1,000 UNITS (25 MCG) TAB PO SCH (19:50)
[2022-10-27] MEDS: Nicotine 14 MG PATCH TD SCH (19:59)
[2022-10-28] MEDS: Morphine 4 MG/ML VIAL SLOW IVP PRN ×5 (01:06→19:58)
[2022-10-28] MEDS: HYDROcodone/Acetaminophen 5/325 mg Tablet PO PRN ×2 (04:13→12:35)
[2022-10-28 08:17] LABS: #Eosinphils 0.3 thou/uL (0.0-0.7); #Lymphocytes 1.3 thou/uL (1.20-3.40); #Neutrophils 8.2 thou/uL (1.40-6.50); %Basophils 0.3 % (0.0-1.0); %Eosinophils 2.8 % (0.0-10.0); %Monocytes 9.1 % (0.0-10.0); %Neutrophils 75.8 % (42.0-75.0); Hemoglobin 9.9 g/dL (14.0-18.0); Mean Corpuscular HGB CONC 33.1 g/dL (32.0-36.0); Mean Corpuscular Hemoglobin 31.6 pg (27.0-31.0); Mean Corpuscular Volume 95.5 fl (78.0-98.0); Mean Platelet Volume 8.4 fL (7.4-10.4); Platelet Count 323 10x3/uL (130-400); RBC Distribution Width 14.2 % (11.5-14.5); Red Blood Cell (RBC) Count 3.14 mill/uL (4.70-6.10); White Blood Cell (WBC) Count 10.7 10x3/uL (4.8-10.8)
[2022-10-28] MEDS: Senokot S 8.6-50 MG TAB PO SCH ×2 (08:20→20:04)
[2022-10-28] MEDS: Cyanocobalamin (Vitamin B-12) 1,000 MCG TAB PO SCH (08:21)
[2022-10-28] MEDS: Sulfameth/Trimethoprim DS 800-160mg TAB PO SCH ×2 (08:21→20:04)
[2022-10-28] MEDS: Aspirin 81 mg Enteric Coated Tablet PO SCH (08:21)
[2022-10-28] MEDS: Finasteride 5 MG TAB PO SCH (08:21)
[2022-10-28] MEDS: Folic Acid 1 MG TAB PO SCH (08:21)
[2022-10-28] MEDS: Gabapentin 100 MG CAP PO SCH ×3 (08:21→20:02)
[2022-10-28] MEDS: Multivit, Therapeutic 1 TAB PO SCH (08:21)
[2022-10-28] MEDS: Metoprolol Tartrate 100 MG TAB PO SCH ×2 (08:22→20:02)
[2022-10-28 08:37] LABS: Anion Gap 13 mmol/L (10-20); BUN (Urea Nitrogen) 12 mg/dL (8.4-25.7); Calc. Creatinine Clearance 64 mL/min (70-130); Calcium 8.7 mg/dL (7.8-10.44); Carbon Dioxide 22 mmol/L (23-31); Chloride 101 mmol/L (98-107); Estimated GFR 72; Glucose 89 mg/dL (80-115); Magnesium 1.5 mg/dL (1.6-2.6); Potassium 3.8 mmol/L (3.5-5.1); Sodium 132 mmol/L (136-145)
[2022-10-28] MEDS ORDERED: Magnesium 2 GM/50 ML(in water) 2 GM in Premix Bag 1 BAG IVPB SCH (09:15)
[2022-10-28] MEDS: Lidocaine 5% Patch TD SCH (10:47)
[2022-10-28] MEDS ORDERED: Magnesium Oxide 400 MG TAB PO SCH (12:00)
[2022-10-28] MEDS: Nicotine 14 MG PATCH TD SCH (20:01)
[2022-10-28] MEDS: Morphine ER 15 MG TAB PO SCH (20:02)
[2022-10-28] MEDS: Apixaban 5 MG TAB PO SCH (20:03)
[2022-10-28] MEDS: Cholecalciferol 1,000 UNITS (25 MCG) TAB PO SCH (20:03)
[2022-10-28] MEDS: Atorvastatin Calcium 40 MG TAB PO SCH (20:03)
[2022-10-28] MEDS: Transdermal Patch Removal TOP SCH (20:04)
[2022-10-28] MEDS ORDERED: Cyclobenzaprine 10 MG TAB PO SCH (21:45)
[2022-10-28] MEDS ORDERED: Metoprolol Tartrate 5 MG/5 ML VIAL IVP SCH (21:48)
[2022-10-29] MEDS: Morphine 4 MG/ML VIAL SLOW IVP PRN ×2 (00:36→08:42)
[2022-10-29] MEDS: Cyanocobalamin (Vitamin B-12) 1,000 MCG TAB PO SCH (08:20)
[2022-10-29] MEDS: Apixaban 5 MG TAB PO SCH ×2 (08:20→21:57)
[2022-10-29] MEDS: Aspirin 81 mg Enteric Coated Tablet PO SCH (08:20)
[2022-10-29] MEDS: Folic Acid 1 MG TAB PO SCH (08:21)
[2022-10-29] MEDS: Finasteride 5 MG TAB PO SCH (08:21)
[2022-10-29] MEDS: Diltiazem HCl CD 300 mg Capsule PO SCH (08:21)
[2022-10-29] MEDS: Gabapentin 100 MG CAP PO SCH (08:21)
[2022-10-29] MEDS: Magnesium Oxide 400 MG TAB PO SCH (08:22)
[2022-10-29] MEDS: Morphine ER 15 MG TAB PO SCH (08:23)
[2022-10-29] MEDS: Metoprolol Tartrate 100 MG TAB PO SCH ×2 (08:23→21:57)
[2022-10-29] MEDS: Multivit, Therapeutic 1 TAB PO SCH (08:23)
[2022-10-29] MEDS: Senokot S 8.6-50 MG TAB PO SCH ×2 (08:24→21:58)
[2022-10-29] MEDS: Sulfameth/Trimethoprim DS 800-160mg TAB PO SCH ×2 (08:24→21:57)
[2022-10-29] MEDS: Lidocaine 5% Patch TD SCH (08:28)
[2022-10-29] MEDS ORDERED: Fentanyl 100 MCG/2 ML VIAL SLOW IVP SCH (11:00)
[2022-10-29] MEDS ORDERED: Naloxone HCl 0.4 mg/ml Vial IV PRN ×2 (11:15→22:56)
[2022-10-29] MEDS ORDERED: Ondansetron PF 4 MG/2 ML Vial IVP PRN ×2 (11:15→22:56)
[2022-10-29] MEDS ORDERED: Zolpidem Tartrate 5 MG TAB PO PRN ×2 (11:15→22:56)
[2022-10-29] MEDS ORDERED: Fentanyl CADD 100 ML IVPB SCH (11:15)
[2022-10-29] MEDS ORDERED: diphenhydrAMINE 50 MG/ML VIAL IM/IV PRN (11:15)
[2022-10-29] MEDS ORDERED: diphenhydrAMINE 25 MG CAP PO PRN ×2 (11:15→22:56)
[2022-10-29] MEDS ORDERED: Promethazine HCl 25 MG/ML VIAL IM PRN ×2 (11:15→22:56)
[2022-10-29] MEDS ORDERED: Cyclobenzaprine 10 MG TAB PO SCH (13:15)
[2022-10-29] MEDS: Ketorolac Tromethamine 30 MG/ML VIAL IVP SCH ×3 (13:21→23:19)
[2022-10-29] MEDS: Acetaminophen 325 MG TAB PO SCH ×4 (13:29→23:20)
[2022-10-29] MEDS ORDERED: Gabapentin 100 MG CAP PO SCH (14:00)
[2022-10-29] MEDS: Atorvastatin Calcium 40 MG TAB PO SCH (21:57)
[2022-10-29] MEDS: Cholecalciferol 1,000 UNITS (25 MCG) TAB PO SCH (21:57)
[2022-10-29] MEDS: Transdermal Patch Removal TOP SCH (21:58)
[2022-10-29] MEDS: Nicotine 14 MG PATCH TD SCH (22:05)
[2022-10-29] MEDS ORDERED: diphenhydrAMINE 50 MG/ML VIAL IVP PRN (22:56)
[2022-10-29] MEDS ORDERED: diphenhydrAMINE 50 MG/ML VIAL IM PRN (22:56)
[2022-10-29] MEDS ORDERED: HYDROmorphone 10 mg/100 ml CADD IVPB PRN (22:56)
[2022-10-29] MEDS ORDERED: Communication Order-Pharmacy FS SCH (23:00)
[2022-10-30] MEDS: Acetaminophen 325 MG TAB PO SCH ×5 (05:32→20:20)
[2022-10-30] MEDS: Ketorolac Tromethamine 30 MG/ML VIAL IVP SCH ×3 (05:32→18:38)
[2022-10-30 07:14] LABS: Magnesium 1.9 mg/dL (1.6-2.6)
[2022-10-30] MEDS ORDERED: Magnesium 2 GM/50 ML(in water) 2 GM in Premix Bag 1 BAG IVPB SCH (08:15)
[2022-10-30] MEDS: Cyanocobalamin (Vitamin B-12) 1,000 MCG TAB PO SCH (08:58)
[2022-10-30] MEDS: Aspirin 81 mg Enteric Coated Tablet PO SCH (08:58)
[2022-10-30] MEDS: Apixaban 5 MG TAB PO SCH (08:58)
[2022-10-30] MEDS: Finasteride 5 MG TAB PO SCH (08:59)
[2022-10-30] MEDS ORDERED: Gabapentin 100 MG CAP PO SCH ×2 (09:00)
[2022-10-30] MEDS: Magnesium Oxide 400 MG TAB PO SCH (09:00)
[2022-10-30] MEDS: Folic Acid 1 MG TAB PO SCH (09:00)
[2022-10-30] MEDS: Metoprolol Tartrate 100 MG TAB PO SCH ×2 (09:00→20:19)
[2022-10-30] MEDS: Multivit, Therapeutic 1 TAB PO SCH (09:01)
[2022-10-30] MEDS: Sulfameth/Trimethoprim DS 800-160mg TAB PO SCH ×2 (09:01→20:19)
[2022-10-30] MEDS: Senokot S 8.6-50 MG TAB PO SCH ×2 (09:01→20:19)
[2022-10-30] MEDS: Diltiazem HCl CD 300 mg Capsule PO SCH (10:18)
[2022-10-30] MEDS ORDERED: Ketorolac Tromethamine 30 MG/ML VIAL ONE (11:02)
[2022-10-30] MEDS: Lidocaine 5% Patch TD SCH (11:19)
[2022-10-30] MEDS ORDERED: HYDROcodone/Acetaminophen 10/325 mg Tablet PO PRN (11:27)
[2022-10-30] MEDS ORDERED: traMADol HCl 50 MG TAB PO PRN (11:28)
[2022-10-30] MEDS: Gabapentin 300 MG CAP PO SCH ×2 (16:04→20:20)
[2022-10-30] MEDS: traMADol HCl 50 MG TAB PO PRN (16:05)
[2022-10-30] MEDS: Cholecalciferol 1,000 UNITS (25 MCG) TAB PO SCH (20:19)
[2022-10-30] MEDS: Cyclobenzaprine 10 MG TAB PO PRN (20:19)
[2022-10-30] MEDS: Atorvastatin Calcium 40 MG TAB PO SCH (20:20)
[2022-10-30] MEDS: Nicotine 14 MG PATCH TD SCH (20:20)
[2022-10-30] MEDS: Transdermal Patch Removal TOP SCH (20:26)
[2022-10-31] MEDS: Ketorolac Tromethamine 30 MG/ML VIAL IVP SCH ×2 (00:22→08:43)
[2022-10-31] MEDS: traMADol HCl 50 MG TAB PO PRN ×2 (02:00→10:59)
[2022-10-31] MEDS: Acetaminophen 325 MG TAB PO SCH ×5 (02:03→16:10)
[2022-10-31] MEDS: HYDROcodone/Acetaminophen 10/325 mg Tablet PO PRN ×2 (03:02→13:09)
[2022-10-31] MEDS: Cyclobenzaprine 10 MG TAB PO PRN ×2 (04:03→10:37)
[2022-10-31] MEDS: Cyanocobalamin (Vitamin B-12) 1,000 MCG TAB PO SCH (08:34)
[2022-10-31] MEDS: Diltiazem HCl CD 300 mg Capsule PO SCH (08:35)
[2022-10-31] MEDS: Aspirin 81 mg Enteric Coated Tablet PO SCH (08:35)
[2022-10-31] MEDS: Sulfameth/Trimethoprim DS 800-160mg TAB PO SCH (08:35)
[2022-10-31] MEDS: Multivit, Therapeutic 1 TAB PO SCH (08:37)
[2022-10-31] MEDS: Folic Acid 1 MG TAB PO SCH (08:37)
[2022-10-31] MEDS: Gabapentin 300 MG CAP PO SCH ×2 (08:37→16:06)
[2022-10-31] MEDS: Metoprolol Tartrate 100 MG TAB PO SCH (08:38)
[2022-10-31] MEDS: Senokot S 8.6-50 MG TAB PO SCH (08:39)
[2022-10-31] MEDS: Finasteride 5 MG TAB PO SCH (08:39)
[2022-10-31] MEDS: Polyethylene Glycol 3350 17 GM Packet PO SCH (08:39)
[2022-10-31] MEDS: Magnesium Oxide 400 MG TAB PO SCH (08:39)
[2022-10-31] MEDS: Lidocaine 5% Patch TD SCH (10:39)
[2022-10-31] MEDS ORDERED: Morphine 4 MG/ML VIAL SLOW IVP PRN (14:56)
[2022-11-01] MEDS: HYDROcodone/Acetaminophen 10/325 mg Tablet PO PRN ×2 (00:02→05:57)
[2022-11-01] MEDS: Nicotine 14 MG PATCH TD SCH (00:03)
[2022-11-01] MEDS: Atorvastatin Calcium 40 MG TAB PO SCH ×2 (00:03→22:31)
[2022-11-01] MEDS: Cholecalciferol 1,000 UNITS (25 MCG) TAB PO SCH ×2 (00:04→22:32)
[2022-11-01] MEDS: Gabapentin 300 MG CAP PO SCH ×4 (00:04→22:32)
[2022-11-01] MEDS: Metoprolol Tartrate 100 MG TAB PO SCH ×3 (00:04→22:32)
[2022-11-01] MEDS: Sulfameth/Trimethoprim DS 800-160mg TAB PO SCH ×3 (00:04→22:32)
[2022-11-01] MEDS: Senokot S 8.6-50 MG TAB PO SCH ×3 (00:04→22:32)
[2022-11-01] MEDS: Transdermal Patch Removal TOP SCH (00:05)
[2022-11-01] MEDS: Acetaminophen 325 MG TAB PO SCH ×7 (00:12→22:31)
[2022-11-01 04:51] LABS: Anion Gap 12 mmol/L (10-20); BUN (Urea Nitrogen) 20 mg/dL (8.4-25.7); Calc. Creatinine Clearance 57 mL/min (70-130); Calcium 9.2 mg/dL (7.8-10.44); Carbon Dioxide 24 mmol/L (23-31); Chloride 100 mmol/L (98-107); Estimated GFR 62; Glucose 79 mg/dL (80-115); Potassium 4.1 mmol/L (3.5-5.1); Sodium 132 mmol/L (136-145)
[2022-11-01] MEDS: Multivit, Therapeutic 1 TAB PO SCH (05:58)
[2022-11-01] MEDS: Cyanocobalamin (Vitamin B-12) 1,000 MCG TAB PO SCH (05:58)
[2022-11-01] MEDS: Folic Acid 1 MG TAB PO SCH (05:59)
[2022-11-01] MEDS: Diltiazem HCl CD 300 mg Capsule PO SCH (05:59)
[2022-11-01] MEDS: Magnesium Oxide 400 MG TAB PO SCH (06:00)
[2022-11-01] MEDS: Finasteride 5 MG TAB PO SCH (06:00)
[2022-11-01] MEDS: Aspirin 81 mg Enteric Coated Tablet PO SCH (06:00)
[2022-11-01] MEDS: Cyclobenzaprine 10 MG TAB PO PRN ×2 (07:48→22:31)
[2022-11-01] MEDS: Polyethylene Glycol 3350 17 GM Packet PO SCH (08:43)
[2022-11-01] MEDS ORDERED: Phenylephrine 10 MG/ML VIAL ONE (08:51)
[2022-11-01] MEDS ORDERED: fentaNYL PF 100 MCG/2 ML SYRINGE ONE (08:51)
[2022-11-01] MEDS ORDERED: Bupivacaine PF 0.5% 30 ML VIAL ONE (08:55)
[2022-11-01] MEDS ORDERED: Fentanyl 100 MCG/2 ML VIAL ONE (08:55)
[2022-11-01] MEDS ORDERED: Sodium Chloride 0.9% 100 ML ONE (08:57)
[2022-11-01] MEDS ORDERED: CEFAZOLIN 2 GM VIAL ONE (08:57)
[2022-11-01] MEDS ORDERED: Bupivacaine HCl 0.5%/Epinephrine 1:200,000/PF 30 ml Vial ONE (09:10)
[2022-11-01] MEDS ORDERED: PHENYLEPHRINE-NS 100 MCG/ML 10 ML SYRINGE ONE (09:16)
[2022-11-01] MEDS ORDERED: Lidocaine 1% PF 5 ML VIAL ONE (09:16)
[2022-11-01] MEDS ORDERED: Dexamethasone 20 MG/5 ML VIAL ONE (09:16)
[2022-11-01] MEDS ORDERED: Ondansetron PF 4 MG/2 ML Vial ONE (09:16)
[2022-11-01] MEDS ORDERED: PROPOFOL 200 MG/20 ML VIAL ONE (09:16)
[2022-11-01] MEDS ORDERED: HYDROmorphone 0.5 MG/0.5 ML SYRINGE ONE (10:40)
[2022-11-01] MEDS ORDERED: Morphine 4 MG/ML VIAL SLOW IVP PRN (12:36)
[2022-11-01] MEDS: Lidocaine 5% Patch TD SCH (12:44)
[2022-11-01] MEDS ORDERED: Zolpidem Tartrate 5 MG TAB PO PRN (16:22)
[2022-11-01] MEDS ORDERED: diphenhydrAMINE 50 MG/ML VIAL IM PRN (16:22)
[2022-11-01] MEDS ORDERED: diphenhydrAMINE 50 MG/ML VIAL IVP PRN (16:22)
[2022-11-01] MEDS ORDERED: Ondansetron PF 4 MG/2 ML Vial IVP PRN (16:22)
[2022-11-01] MEDS ORDERED: Naloxone HCl 0.4 mg/ml Vial IV PRN (16:22)
[2022-11-01] MEDS ORDERED: Promethazine HCl 25 MG/ML VIAL IM PRN (16:22)
[2022-11-01] MEDS ORDERED: diphenhydrAMINE 25 MG CAP PO PRN (16:22)
[2022-11-01] MEDS ORDERED: Communication Order-Pharmacy FS SCH (16:30)
[2022-11-01] MEDS: HYDROmorphone 10 mg/100 ml CADD IVPB PRN (18:31)
[2022-11-01] MEDS ORDERED: FENTANYL 50 MCG/ML 1 ML VIAL SLOW IVP SCH (23:15)
[2022-11-01] MEDS ORDERED: Ketorolac Tromethamine 30 MG/ML VIAL IVP SCH (23:15)
[2022-11-02] MEDS: Nicotine 14 MG PATCH TD SCH ×2 (00:10→21:01)
[2022-11-02] MEDS: Transdermal Patch Removal TOP SCH ×2 (00:16→21:02)
[2022-11-02 04:52] LABS: #Lymphocytes 0.7 thou/uL (1.20-3.40); #Monocytes 0.7 thou/uL (0.11-0.59); #Neutrophils 14.2 thou/uL (1.40-6.50); %Eosinophils 0.2 % (0.0-10.0); %Lymphocytes 4.5 % (21.0-51.0); %Monocytes 4.6 % (0.0-10.0); %Neutrophils 90.7 % (42.0-75.0); Hemoglobin 9.6 g/dL (14.0-18.0); Mean Corpuscular HGB CONC 32.7 g/dL (32.0-36.0); Mean Corpuscular Hemoglobin 31.2 pg (27.0-31.0); Mean Corpuscular Volume 95.6 fl (78.0-98.0); Mean Platelet Volume 8.7 fL (7.4-10.4); Platelet Count 402 10x3/uL (130-400); RBC Distribution Width 14.2 % (11.5-14.5); Red Blood Cell (RBC) Count 3.09 mill/uL (4.70-6.10); White Blood Cell (WBC) Count 15.6 10x3/uL (4.8-10.8)
[2022-11-02 05:18] LABS: Anion Gap 14 mmol/L (10-20); BUN (Urea Nitrogen) 28 mg/dL (8.4-25.7); Calc. Creatinine Clearance 53 mL/min (70-130); Calcium 8.8 mg/dL (7.8-10.44); Carbon Dioxide 20 mmol/L (23-31); Chloride 100 mmol/L (98-107); Estimated GFR 57; Glucose 210 mg/dL (80-115); Magnesium 2.1 mg/dL (1.6-2.6); Potassium 4.9 mmol/L (3.5-5.1); Sodium 129 mmol/L (136-145)
[2022-11-02] MEDS: Acetaminophen 325 MG TAB PO SCH ×6 (05:55→20:59)
[2022-11-02] MEDS: Polyethylene Glycol 3350 17 GM Packet PO SCH (08:19)
[2022-11-02] MEDS: Cyanocobalamin (Vitamin B-12) 1,000 MCG TAB PO SCH (08:20)
[2022-11-02] MEDS: Folic Acid 1 MG TAB PO SCH (08:20)
[2022-11-02] MEDS: Diltiazem HCl CD 300 mg Capsule PO SCH (08:20)
[2022-11-02] MEDS: Aspirin 81 mg Enteric Coated Tablet PO SCH (08:20)
[2022-11-02] MEDS: Senokot S 8.6-50 MG TAB PO SCH ×2 (08:20→20:59)
[2022-11-02] MEDS: Gabapentin 300 MG CAP PO SCH ×3 (08:20→21:00)
[2022-11-02] MEDS: Magnesium Oxide 400 MG TAB PO SCH (08:21)
[2022-11-02] MEDS: Finasteride 5 MG TAB PO SCH (08:21)
[2022-11-02] MEDS: Sulfameth/Trimethoprim DS 800-160mg TAB PO SCH ×2 (08:21→21:01)
[2022-11-02] MEDS: Multivit, Therapeutic 1 TAB PO SCH (08:21)
[2022-11-02] MEDS: Metoprolol Tartrate 100 MG TAB PO SCH ×2 (10:33→21:01)
[2022-11-02] MEDS ORDERED: Metoprolol Tartrate 100 MG TAB PO SCH (10:45)
[2022-11-02] MEDS: Lidocaine 5% Patch TD SCH (12:02)
[2022-11-02] MEDS: HYDROmorphone 10 mg/100 ml CADD IVPB PRN (15:34)
[2022-11-02] MEDS: Cholecalciferol 1,000 UNITS (25 MCG) TAB PO SCH (21:01)
[2022-11-02] MEDS: Cyclobenzaprine 10 MG TAB PO PRN (21:01)
[2022-11-02] MEDS: Atorvastatin Calcium 40 MG TAB PO SCH (21:01)
[2022-11-03] MEDS: Acetaminophen 325 MG TAB PO SCH ×6 (02:29→22:09)
[2022-11-03] MEDS: Polyethylene Glycol 3350 17 GM Packet PO SCH (10:34)
[2022-11-03] MEDS: Lidocaine 5% Patch TD SCH ×2 (10:34→10:38)
[2022-11-03] MEDS: Multivit, Therapeutic 1 TAB PO SCH (10:34)
[2022-11-03] MEDS: Diltiazem HCl CD 300 mg Capsule PO SCH (10:34)
[2022-11-03] MEDS: Metoprolol Tartrate 100 MG TAB PO SCH ×2 (10:34→22:11)
[2022-11-03] MEDS: Cyanocobalamin (Vitamin B-12) 1,000 MCG TAB PO SCH (10:35)
[2022-11-03] MEDS: Gabapentin 300 MG CAP PO SCH ×3 (10:35→22:10)
[2022-11-03] MEDS: Aspirin 81 mg Enteric Coated Tablet PO SCH (10:35)
[2022-11-03] MEDS: Senokot S 8.6-50 MG TAB PO SCH ×2 (10:35→22:10)
[2022-11-03] MEDS: Finasteride 5 MG TAB PO SCH (10:35)
[2022-11-03] MEDS: Folic Acid 1 MG TAB PO SCH (10:35)
[2022-11-03] MEDS: Magnesium Oxide 400 MG TAB PO SCH (10:37)
[2022-11-03] MEDS: Nicotine 14 MG PATCH TD SCH (22:09)
[2022-11-03] MEDS: Cholecalciferol 1,000 UNITS (25 MCG) TAB PO SCH (22:10)
[2022-11-03] MEDS: Atorvastatin Calcium 40 MG TAB PO SCH (22:10)
[2022-11-04] MEDS: Transdermal Patch Removal TOP SCH ×2 (00:23→20:33)
[2022-11-04] MEDS: Acetaminophen 325 MG TAB PO SCH ×6 (03:08→20:30)
[2022-11-04] MEDS: Senokot S 8.6-50 MG TAB PO SCH ×2 (08:42→20:30)
[2022-11-04] MEDS: Diltiazem HCl CD 300 mg Capsule PO SCH (08:43)
[2022-11-04] MEDS: Magnesium Oxide 400 MG TAB PO SCH (08:43)
[2022-11-04] MEDS: Multivit, Therapeutic 1 TAB PO SCH (08:44)
[2022-11-04] MEDS: Folic Acid 1 MG TAB PO SCH (08:44)
[2022-11-04] MEDS: Aspirin 81 mg Enteric Coated Tablet PO SCH (08:44)
[2022-11-04] MEDS: Metoprolol Tartrate 100 MG TAB PO SCH ×2 (08:44→20:30)
[2022-11-04] MEDS: Cyanocobalamin (Vitamin B-12) 1,000 MCG TAB PO SCH (08:44)
[2022-11-04] MEDS: Finasteride 5 MG TAB PO SCH (08:44)
[2022-11-04] MEDS: Polyethylene Glycol 3350 17 GM Packet PO SCH (08:45)
[2022-11-04] MEDS: Gabapentin 300 MG CAP PO SCH ×3 (08:45→20:29)
[2022-11-04] MEDS: Lidocaine 5% Patch TD SCH (12:24)
[2022-11-04] MEDS: Nicotine 14 MG PATCH TD SCH (20:29)
[2022-11-04] MEDS: Atorvastatin Calcium 40 MG TAB PO SCH (20:29)
[2022-11-04] MEDS: Cholecalciferol 1,000 UNITS (25 MCG) TAB PO SCH (20:29)
[2022-11-05] MEDS: Acetaminophen 325 MG TAB PO SCH ×6 (00:36→20:18)
[2022-11-05 04:44] LABS: #Basophils 0.1 thou/uL (0.0-0.2); #Eosinphils 0.8 thou/uL (0.0-0.7); #Lymphocytes 2.1 thou/uL (1.20-3.40); #Monocytes 1.1 thou/uL (0.11-0.59); #Neutrophils 8.3 thou/uL (1.40-6.50); %Basophils 0.6 % (0.0-1.0); %Eosinophils 6.2 % (0.0-10.0); %Lymphocytes 16.9 % (21.0-51.0); %Monocytes 8.7 % (0.0-10.0); %Neutrophils 67.7 % (42.0-75.0); Hemoglobin 10.5 g/dL (14.0-18.0); Mean Corpuscular HGB CONC 32.4 g/dL (32.0-36.0); Mean Corpuscular Volume 95.8 fl (78.0-98.0); Mean Platelet Volume 8.8 fL (7.4-10.4); Platelet Count 467 10x3/uL (130-400); RBC Distribution Width 14.5 % (11.5-14.5); Red Blood Cell (RBC) Count 3.39 mill/uL (4.70-6.10); White Blood Cell (WBC) Count 12.3 10x3/uL (4.8-10.8)
[2022-11-05 05:07] LABS: Anion Gap 14 mmol/L (10-20); BUN (Urea Nitrogen) 29 mg/dL (8.4-25.7); CRP (Inflammatory) 6.79 mg/dL (= or < 0.5); Calc. Creatinine Clearance 66 mL/min (70-130); Calcium 9.9 mg/dL (7.8-10.44); Carbon Dioxide 24 mmol/L (23-31); Chloride 103 mmol/L (98-107); Estimated GFR 73; Glucose 114 mg/dL (80-115); Potassium 4.4 mmol/L (3.5-5.1); Sodium 137 mmol/L (136-145)
[2022-11-05] MEDS: Polyethylene Glycol 3350 17 GM Packet PO SCH (10:18)
[2022-11-05] MEDS: Diltiazem HCl CD 300 mg Capsule PO SCH (10:18)
[2022-11-05] MEDS: Aspirin 81 mg Enteric Coated Tablet PO SCH (10:18)
[2022-11-05] MEDS: Folic Acid 1 MG TAB PO SCH (10:19)
[2022-11-05] MEDS: HYDROcodone/Acetaminophen 10/325 mg Tablet PO PRN ×2 (10:20→16:59)
[2022-11-05] MEDS: Metoprolol Tartrate 100 MG TAB PO SCH ×2 (10:22→20:22)
[2022-11-05] MEDS: Finasteride 5 MG TAB PO SCH (10:23)
[2022-11-05] MEDS: Gabapentin 300 MG CAP PO SCH ×3 (10:23→20:27)
[2022-11-05] MEDS: Cyanocobalamin (Vitamin B-12) 1,000 MCG TAB PO SCH (10:23)
[2022-11-05] MEDS: Senokot S 8.6-50 MG TAB PO SCH ×2 (10:23→20:22)
[2022-11-05] MEDS: Multivit, Therapeutic 1 TAB PO SCH (10:24)
[2022-11-05] MEDS: Magnesium Oxide 400 MG TAB PO SCH (10:24)
[2022-11-05] MEDS ORDERED: Morphine 4 MG/ML VIAL SLOW IVP SCH (11:00)
[2022-11-05] MEDS: Lidocaine 5% Patch TD SCH (11:15)
[2022-11-05] MEDS: Cyclobenzaprine 10 MG TAB PO PRN (12:47)
[2022-11-05] MEDS ORDERED: Gabapentin 300 MG CAP PO SCH (13:00)
[2022-11-05] MEDS: Morphine 2 MG/ML VIAL SLOW IVP PRN (15:14)
[2022-11-05] MEDS ORDERED: Cyclobenzaprine 10 MG TAB PO SCH (16:30)
[2022-11-05] MEDS: Transdermal Patch Removal TOP SCH (20:17)
[2022-11-05] MEDS: Atorvastatin Calcium 40 MG TAB PO SCH (20:21)
[2022-11-05] MEDS: Nicotine 14 MG PATCH TD SCH (20:21)
[2022-11-05] MEDS: Cholecalciferol 1,000 UNITS (25 MCG) TAB PO SCH (20:22)
[2022-11-06] MEDS: Acetaminophen 325 MG TAB PO SCH ×6 (03:30→20:38)
[2022-11-06] MEDS: Cyclobenzaprine 10 MG TAB PO PRN ×2 (05:19→16:28)
[2022-11-06] MEDS: Morphine 2 MG/ML VIAL SLOW IVP PRN ×3 (08:12→23:18)
[2022-11-06] MEDS: Diltiazem HCl CD 300 mg Capsule PO SCH (08:16)
[2022-11-06] MEDS: Polyethylene Glycol 3350 17 GM Packet PO SCH (08:16)
[2022-11-06] MEDS: Senokot S 8.6-50 MG TAB PO SCH ×2 (08:17→20:40)
[2022-11-06] MEDS: Multivit, Therapeutic 1 TAB PO SCH (08:17)
[2022-11-06] MEDS: Aspirin 81 mg Enteric Coated Tablet PO SCH (08:17)
[2022-11-06] MEDS: Finasteride 5 MG TAB PO SCH (08:17)
[2022-11-06] MEDS: Gabapentin 300 MG CAP PO SCH ×3 (08:17→20:39)
[2022-11-06] MEDS: Cyanocobalamin (Vitamin B-12) 1,000 MCG TAB PO SCH (08:17)
[2022-11-06] MEDS: Magnesium Oxide 400 MG TAB PO SCH (08:17)
[2022-11-06] MEDS: Metoprolol Tartrate 100 MG TAB PO SCH ×2 (08:18→20:40)
[2022-11-06] MEDS: Folic Acid 1 MG TAB PO SCH (08:18)
[2022-11-06] MEDS: Lidocaine 5% Patch TD SCH (11:15)
[2022-11-06] MEDS: HYDROcodone/Acetaminophen 10/325 mg Tablet PO PRN ×2 (11:16→20:40)
[2022-11-06] MEDS: Metoprolol Tartrate 5 MG/5 ML VIAL IVP PRN (16:28)
[2022-11-06] MEDS: Nicotine 14 MG PATCH TD SCH (20:38)
[2022-11-06] MEDS: Atorvastatin Calcium 40 MG TAB PO SCH (20:39)
[2022-11-06] MEDS: Cholecalciferol 1,000 UNITS (25 MCG) TAB PO SCH (20:39)
[2022-11-06] MEDS: Transdermal Patch Removal TOP SCH (23:34)
[2022-11-07] MEDS: Bisacodyl 10 MG SUPP PR PRN ×2 (00:15→08:44)
[2022-11-07] MEDS: Metoprolol Tartrate 5 MG/5 ML VIAL IVP PRN (00:33)
[2022-11-07] MEDS: Acetaminophen 325 MG TAB PO SCH ×5 (00:33→21:38)
[2022-11-07] MEDS: Simethicone Chewable 80 MG TAB PO PRN (03:01)
[2022-11-07] MEDS ORDERED: Metoprolol Tartrate 5 MG/5 ML VIAL IVP SCH (03:11)
[2022-11-07] MEDS ORDERED: Electrolyte Replacement Protocol 1 EACH FS SCH (03:15)
[2022-11-07] MEDS: Cyclobenzaprine 10 MG TAB PO PRN (03:50)
[2022-11-07 04:14] LABS: #Eosinphils 0.1 thou/uL (0.0-0.7); #Lymphocytes 1.4 thou/uL (1.20-3.40); #Monocytes 0.9 thou/uL (0.11-0.59); #Neutrophils 15.2 thou/uL (1.40-6.50); %Basophils 0.1 % (0.0-1.0); %Eosinophils 0.3 % (0.0-10.0); %Monocytes 4.9 % (0.0-10.0); %Neutrophils 86.7 % (42.0-75.0); Hemoglobin 12.5 g/dL (14.0-18.0); Mean Corpuscular Hemoglobin 31.4 pg (27.0-31.0); Mean Platelet Volume 8.3 fL (7.4-10.4); Platelet Count 584 10x3/uL (130-400); RBC Distribution Width 14.9 % (11.5-14.5); Red Blood Cell (RBC) Count 3.99 mill/uL (4.70-6.10); White Blood Cell (WBC) Count 17.6 10x3/uL (4.8-10.8)
[2022-11-07] MEDS ORDERED: Fentanyl 100 MCG/2 ML VIAL SLOW IVP SCH (04:30)
[2022-11-07 04:32] LABS: Anion Gap 17 mmol/L (10-20); BUN (Urea Nitrogen) 43 mg/dL (8.4-25.7); Calc. Creatinine Clearance 53 mL/min (70-130); Calcium 10.1 mg/dL (7.8-10.44); Carbon Dioxide 20 mmol/L (23-31); Chloride 102 mmol/L (98-107); Estimated GFR 57; Glucose 199 mg/dL (80-115); Potassium 4.8 mmol/L (3.5-5.1); Sodium 134 mmol/L (136-145)
[2022-11-07] MEDS ORDERED: Magnesium 2 GM/50 ML(in water) 2 GM in Premix Bag 1 BAG IVPB SCH (08:00)
[2022-11-07] MEDS ORDERED: Fleet Enema 133 ML BOT PR SCH (08:30)
[2022-11-07] MEDS: Morphine 2 MG/ML VIAL SLOW IVP PRN (08:42)
[2022-11-07] MEDS: Ondansetron PF 4 MG/2 ML Vial IVP PRN (08:42)
[2022-11-07] MEDS: Diltiazem 125 MG in Sodium Chloride 0.9% 100 ML IVPB SCH (08:43)
[2022-11-07] MEDS: Cyanocobalamin (Vitamin B-12) 1,000 MCG TAB PO SCH (10:22)
[2022-11-07] MEDS: Folic Acid 1 MG TAB PO SCH (10:22)
[2022-11-07] MEDS: Finasteride 5 MG TAB PO SCH (10:22)
[2022-11-07] MEDS: Aspirin 81 mg Enteric Coated Tablet PO SCH (10:22)
[2022-11-07] MEDS: Gabapentin 300 MG CAP PO SCH ×3 (10:22→21:39)
[2022-11-07] MEDS: Magnesium Oxide 400 MG TAB PO SCH (10:23)
[2022-11-07] MEDS: Metoprolol Tartrate 100 MG TAB PO SCH ×2 (10:23→21:39)
[2022-11-07] MEDS: Senokot S 8.6-50 MG TAB PO SCH ×2 (10:23→21:38)
[2022-11-07] MEDS: Polyethylene Glycol 3350 17 GM Packet PO SCH (10:23)
[2022-11-07] MEDS: Multivit, Therapeutic 1 TAB PO SCH (10:23)
[2022-11-07] MEDS: Lidocaine 5% Patch TD SCH (12:47)
[2022-11-07 13:21] LABS: Clarity Extra Turbid (Clear)
[2022-11-07 13:22] LABS: Bilirubin Unable to Interpret (Negative); Blood, Urine Unable to Interpret (Negative); Glucose, Urine (Dipstick) Unable to Interpret mg/dL (Negative); Ketone, Urine Unable to Interpret mg/dL (Negative); Leukocyte Unable to Interpret (Negative); Nitrite Unable to Interpret (Negative); Protein, Urine (Dipstick) Unable to Interpret mg/dL (Neg-Trace); Urobilinogen UNABLE TO INTERPRET mg/dL (Less than 2)
[2022-11-07 13:23] LABS: Bacteria/HPF 4+ HPF (None Seen); CAUTI Indications for Culture Fever or rigors; Squamous Epithelial 0-3 HPF (0-3); Urine Culture Reflex Yes Yes; WBC/HPF Greater than 50 HPF (0-3)
[2022-11-07] MEDS: Nicotine 14 MG PATCH TD SCH (21:37)
[2022-11-07] MEDS: Atorvastatin Calcium 40 MG TAB PO SCH (21:38)
[2022-11-07] MEDS: Cholecalciferol 1,000 UNITS (25 MCG) TAB PO SCH (21:39)
[2022-11-08] MEDS: Transdermal Patch Removal TOP SCH ×2 (00:37→23:31)
[2022-11-08] MEDS: Acetaminophen 325 MG TAB PO SCH ×6 (01:57→20:23)
[2022-11-08] MEDS: Senokot S 8.6-50 MG TAB PO SCH ×2 (09:46→20:24)
[2022-11-08] MEDS: Multivit, Therapeutic 1 TAB PO SCH (09:47)
[2022-11-08] MEDS: Gabapentin 300 MG CAP PO SCH ×3 (09:47→20:25)
[2022-11-08] MEDS: Magnesium Oxide 400 MG TAB PO SCH (09:47)
[2022-11-08] MEDS: Aspirin 81 mg Enteric Coated Tablet PO SCH (09:48)
[2022-11-08] MEDS: Folic Acid 1 MG TAB PO SCH (09:48)
[2022-11-08] MEDS: Metoprolol Tartrate 100 MG TAB PO SCH ×2 (09:48→20:24)
[2022-11-08] MEDS: Finasteride 5 MG TAB PO SCH (09:48)
[2022-11-08] MEDS: Polyethylene Glycol 3350 17 GM Packet PO SCH (09:49)
[2022-11-08] MEDS: Cyanocobalamin (Vitamin B-12) 1,000 MCG TAB PO SCH (09:49)
[2022-11-08] MEDS: Lidocaine 5% Patch TD SCH (09:49)
[2022-11-08] MEDS: Diltiazem 125 MG in Sodium Chloride 0.9% 100 ML IVPB SCH (09:56)
[2022-11-08] MEDS ORDERED: Fleet Enema 133 ML BOT PR SCH (10:15)
[2022-11-08 13:20] LABS: INR-International Normal Ratio 1.1; Prothrombin Time 14.3 sec (12.0-14.7)
[2022-11-08] MEDS ORDERED: Warfarin Sodium 10 MG TAB PO SCH (17:00)
[2022-11-08] MEDS: Nicotine 14 MG PATCH TD SCH (20:23)
[2022-11-08] MEDS: Cholecalciferol 1,000 UNITS (25 MCG) TAB PO SCH (20:25)
[2022-11-08] MEDS: Atorvastatin Calcium 40 MG TAB PO SCH (20:25)
[2022-11-08] MEDS: HYDROcodone/Acetaminophen 10/325 mg Tablet PO PRN (20:26)
[2022-11-08] MEDS: Simethicone Chewable 80 MG TAB PO PRN (23:32)
[2022-11-09] MEDS: Diltiazem 125 MG in Sodium Chloride 0.9% 100 ML IVPB SCH (01:45)
[2022-11-09] MEDS: Acetaminophen 325 MG TAB PO SCH ×6 (02:27→21:28)
[2022-11-09 04:31] LABS: Hemoglobin 11.9 g/dL (14.0-18.0); Mean Corpuscular HGB CONC 33.9 g/dL (32.0-36.0); Mean Corpuscular Volume 94.4 fl (78.0-98.0); Mean Platelet Volume 8.5 fL (7.4-10.4); Platelet Count 444 10x3/uL (130-400); RBC Distribution Width 14.5 % (11.5-14.5); Red Blood Cell (RBC) Count 3.72 mill/uL (4.70-6.10); White Blood Cell (WBC) Count 21.5 10x3/uL (4.8-10.8)
[2022-11-09 04:34] LABS: INR-International Normal Ratio 1.1; Prothrombin Time 14.8 sec (12.0-14.7)
[2022-11-09 04:47] LABS: Anion Gap 15 mmol/L (10-20); BUN (Urea Nitrogen) 49 mg/dL (8.4-25.7); Calc. Creatinine Clearance 61 mL/min (70-130); Calcium 9.9 mg/dL (7.8-10.44); Carbon Dioxide 20 mmol/L (23-31); Chloride 101 mmol/L (98-107); Estimated GFR 80; Glucose 149 mg/dL (80-115); Potassium 3.8 mmol/L (3.5-5.1); Sodium 132 mmol/L (136-145)
[2022-11-09 04:54] LABS: Band 4 % (5-11); Eosinophils 1 % (0-10); Hypochromia SLIGHT = 6-15 cells (100X) (0-5/hpf); Lymphocytes 6 % (21-51); MDiff Complete? YES; Monocytes 7 % (0-10); Neutrophil 82 % (42-75); Platelet Morphology Comment Appears Adequate
[2022-11-09] MEDS: Morphine 2 MG/ML VIAL SLOW IVP PRN ×2 (05:07→18:44)
[2022-11-09] MEDS: Senokot S 8.6-50 MG TAB PO SCH ×2 (10:32→21:27)
[2022-11-09] MEDS: Aspirin 81 mg Enteric Coated Tablet PO SCH (10:33)
[2022-11-09] MEDS: Gabapentin 300 MG CAP PO SCH ×3 (10:34→21:28)
[2022-11-09] MEDS: Multivit, Therapeutic 1 TAB PO SCH (10:34)
[2022-11-09] MEDS: Folic Acid 1 MG TAB PO SCH (10:34)
[2022-11-09] MEDS: Metoprolol Tartrate 100 MG TAB PO SCH ×2 (10:34→21:28)
[2022-11-09] MEDS: Finasteride 5 MG TAB PO SCH (10:34)
[2022-11-09] MEDS: Cyanocobalamin (Vitamin B-12) 1,000 MCG TAB PO SCH (10:34)
[2022-11-09] MEDS: Polyethylene Glycol 3350 17 GM Packet PO SCH (10:35)
[2022-11-09] MEDS: Magnesium Oxide 400 MG TAB PO SCH (10:36)
[2022-11-09] MEDS: HYDROcodone/Acetaminophen 10/325 mg Tablet PO PRN ×2 (11:51→21:29)
[2022-11-09] MEDS: Lidocaine 5% Patch TD SCH (13:27)
[2022-11-09] MEDS: Warfarin Sodium 7.5 MG TAB PO SCH (18:02)
[2022-11-09] MEDS: Atorvastatin Calcium 40 MG TAB PO SCH (21:27)
[2022-11-09] MEDS: Cholecalciferol 1,000 UNITS (25 MCG) TAB PO SCH (21:28)
[2022-11-09] MEDS: Nicotine 14 MG PATCH TD SCH (21:29)
[2022-11-10] MEDS: Transdermal Patch Removal TOP SCH ×2 (00:13→20:17)
[2022-11-10] MEDS: Acetaminophen 325 MG TAB PO SCH ×6 (01:11→20:16)
[2022-11-10] MEDS: Morphine 2 MG/ML VIAL SLOW IVP PRN ×3 (04:47→23:14)
[2022-11-10 04:58] LABS: INR-International Normal Ratio 1.9; Prothrombin Time 22.9 sec (12.0-14.7)
[2022-11-10] MEDS: Senokot S 8.6-50 MG TAB PO SCH ×2 (09:16→20:16)
[2022-11-10] MEDS: Folic Acid 1 MG TAB PO SCH (09:16)
[2022-11-10] MEDS: Cyanocobalamin (Vitamin B-12) 1,000 MCG TAB PO SCH (09:17)
[2022-11-10] MEDS: Aspirin 81 mg Enteric Coated Tablet PO SCH (09:17)
[2022-11-10] MEDS: Multivit, Therapeutic 1 TAB PO SCH (09:18)
[2022-11-10] MEDS: Gabapentin 300 MG CAP PO SCH ×3 (09:18→20:15)
[2022-11-10] MEDS: Metoprolol Tartrate 100 MG TAB PO SCH ×2 (09:19→20:17)
[2022-11-10] MEDS: Finasteride 5 MG TAB PO SCH (09:19)
[2022-11-10] MEDS: Magnesium Oxide 400 MG TAB PO SCH (09:27)
[2022-11-10] MEDS: Polyethylene Glycol 3350 17 GM Packet PO SCH (09:28)
[2022-11-10] MEDS: HYDROcodone/Acetaminophen 10/325 mg Tablet PO PRN ×2 (13:02→20:16)
[2022-11-10] MEDS: Lidocaine 5% Patch TD SCH (13:03)
[2022-11-10] MEDS: Warfarin Sodium 7.5 MG TAB PO SCH (16:30)
[2022-11-10] MEDS: Atorvastatin Calcium 40 MG TAB PO SCH (20:16)
[2022-11-10] MEDS: Nicotine 14 MG PATCH TD SCH (20:17)
[2022-11-10] MEDS: Cholecalciferol 1,000 UNITS (25 MCG) TAB PO SCH (20:17)
[2022-11-11] MEDS: Acetaminophen 325 MG TAB PO SCH ×7 (01:25→20:08)
[2022-11-11] MEDS: HYDROcodone/Acetaminophen 10/325 mg Tablet PO PRN ×2 (02:34→16:07)
[2022-11-11 04:44] LABS: INR-International Normal Ratio 3.3; Prothrombin Time 34.9 sec (12.0-14.7)
[2022-11-11 04:49] LABS: Anion Gap 14 mmol/L (10-20); BUN (Urea Nitrogen) 41 mg/dL (8.4-25.7); Calc. Creatinine Clearance 81 mL/min (70-130); Calcium 9.4 mg/dL (7.8-10.44); Carbon Dioxide 22 mmol/L (23-31); Chloride 102 mmol/L (98-107); Estimated GFR 97; Glucose 97 mg/dL (80-115); Potassium 3.6 mmol/L (3.5-5.1); Sodium 134 mmol/L (136-145)
[2022-11-11] MEDS ORDERED: Warfarin Sodium 7.5 MG TAB PO SCH (08:45)
[2022-11-11] MEDS: Cyanocobalamin (Vitamin B-12) 1,000 MCG TAB PO SCH (09:00)
[2022-11-11] MEDS: Aspirin 81 mg Enteric Coated Tablet PO SCH (09:00)
[2022-11-11] MEDS: Gabapentin 300 MG CAP PO SCH ×3 (09:01→20:08)
[2022-11-11] MEDS: Finasteride 5 MG TAB PO SCH (09:01)
[2022-11-11] MEDS: Folic Acid 1 MG TAB PO SCH (09:01)
[2022-11-11] MEDS: Senokot S 8.6-50 MG TAB PO SCH ×2 (09:03→20:08)
[2022-11-11] MEDS: Multivit, Therapeutic 1 TAB PO SCH (09:03)
[2022-11-11] MEDS: Polyethylene Glycol 3350 17 GM Packet PO SCH ×2 (09:03→12:14)
[2022-11-11] MEDS: Metoprolol Tartrate 100 MG TAB PO SCH ×2 (09:03→20:09)
[2022-11-11] MEDS: Morphine 2 MG/ML VIAL SLOW IVP PRN ×3 (09:04→21:53)
[2022-11-11] MEDS: Magnesium Oxide 400 MG TAB PO SCH (09:05)
[2022-11-11] MEDS: Simethicone Chewable 80 MG TAB PO PRN (09:57)
[2022-11-11] MEDS: Lidocaine 5% Patch TD SCH (12:14)
[2022-11-11] MEDS: Cholecalciferol 1,000 UNITS (25 MCG) TAB PO SCH (20:09)
[2022-11-11] MEDS: Nicotine 14 MG PATCH TD SCH (20:09)
[2022-11-11] MEDS: Atorvastatin Calcium 40 MG TAB PO SCH (20:09)
[2022-11-11] MEDS: Transdermal Patch Removal TOP SCH (21:55)
[2022-11-12] MEDS: Acetaminophen 325 MG TAB PO SCH ×6 (00:23→21:34)
[2022-11-12] MEDS: HYDROcodone/Acetaminophen 10/325 mg Tablet PO PRN ×2 (03:24→13:10)
[2022-11-12] MEDS: Simethicone Chewable 80 MG TAB PO PRN ×2 (04:06→10:01)
[2022-11-12 05:31] LABS: INR-International Normal Ratio 3.3; Prothrombin Time 35.3 sec (12.0-14.7)
[2022-11-12] MEDS: Gabapentin 300 MG CAP PO SCH ×2 (09:37→14:34)
[2022-11-12] MEDS: Cyanocobalamin (Vitamin B-12) 1,000 MCG TAB PO SCH (09:39)
[2022-11-12] MEDS: Aspirin 81 mg Enteric Coated Tablet PO SCH (09:39)
[2022-11-12] MEDS: Folic Acid 1 MG TAB PO SCH (09:39)
[2022-11-12] MEDS: Finasteride 5 MG TAB PO SCH (09:39)
[2022-11-12 09:40] LABS: Anion Gap 16 mmol/L (10-20); BUN (Urea Nitrogen) 25 mg/dL (8.4-25.7); Calc. Creatinine Clearance 82 mL/min (70-130); Calcium 9.1 mg/dL (7.8-10.44); Carbon Dioxide 22 mmol/L (23-31); Chloride 100 mmol/L (98-107); Estimated GFR 97; Glucose 79 mg/dL (80-115); Potassium 3.6 mmol/L (3.5-5.1); Sodium 134 mmol/L (136-145)
[2022-11-12] MEDS: Senokot S 8.6-50 MG TAB PO SCH ×2 (09:40→21:35)
[2022-11-12] MEDS: Multivit, Therapeutic 1 TAB PO SCH (09:40)
[2022-11-12] MEDS: Metoprolol Tartrate 100 MG TAB PO SCH ×2 (09:40→21:34)
[2022-11-12] MEDS: Morphine 2 MG/ML VIAL SLOW IVP PRN ×2 (09:42→17:32)
[2022-11-12] MEDS: Ondansetron PF 4 MG/2 ML Vial IVP PRN (09:44)
[2022-11-12] MEDS: Polyethylene Glycol 3350 17 GM Packet PO SCH (09:45)
[2022-11-12] MEDS: Magnesium Oxide 400 MG TAB PO SCH (09:48)
[2022-11-12] MEDS: Lidocaine 5% Patch TD SCH (11:48)
[2022-11-12] MEDS ORDERED: Mag-Al 1200 mg/1200 mg/30 ML UDCUP PO PRN (12:47)
[2022-11-12] MEDS: Cyclobenzaprine 10 MG TAB PO PRN (13:13)
[2022-11-12] MEDS ORDERED: Famotidine 20 MG TAB PO SCH (13:15)
[2022-11-12 14:21] VITALS: BMI 17.8
[2022-11-12] MEDS ORDERED: Warfarin Sodium 5 MG TAB PO SCH (17:00)
[2022-11-12] MEDS: Ketorolac Tromethamine 30 MG/ML VIAL IVP PRN (17:34)
[2022-11-12] MEDS ORDERED: Gabapentin 300 MG CAP PO SCH (21:00)
[2022-11-12] MEDS ORDERED: Cyclobenzaprine 10 MG TAB PO SCH (21:00)
[2022-11-12] MEDS: Atorvastatin Calcium 40 MG TAB PO SCH (21:34)
[2022-11-12] MEDS: Cholecalciferol 1,000 UNITS (25 MCG) TAB PO SCH (21:34)
[2022-11-12] MEDS: Nicotine 14 MG PATCH TD SCH (21:34)
[2022-11-12] MEDS: Famotidine 20 MG TAB PO SCH (21:35)
[2022-11-12] MEDS: Transdermal Patch Removal TOP SCH (21:36)
[2022-11-13] MEDS: Acetaminophen 325 MG TAB PO SCH ×6 (00:48→22:03)
[2022-11-13 04:15] LABS: #Basophils 0.1 thou/uL (0.0-0.2); #Eosinphils 0.8 thou/uL (0.0-0.7); #Lymphocytes 2.5 thou/uL (1.20-3.40); #Neutrophils 7.4 thou/uL (1.40-6.50); %Basophils 0.8 % (0.0-1.0); %Eosinophils 6.6 % (0.0-10.0); %Monocytes 8.8 % (0.0-10.0); %Neutrophils 62.8 % (42.0-75.0); Mean Corpuscular HGB CONC 32.9 g/dL (32.0-36.0); Mean Corpuscular Hemoglobin 31.3 pg (27.0-31.0); Platelet Count 421 10x3/uL (130-400); RBC Distribution Width 14.3 % (11.5-14.5); Red Blood Cell (RBC) Count 3.19 mill/uL (4.70-6.10); White Blood Cell (WBC) Count 11.8 10x3/uL (4.8-10.8)
[2022-11-13 04:26] LABS: INR-International Normal Ratio 2.8; Prothrombin Time 30.7 sec (12.0-14.7)
[2022-11-13 04:35] LABS: Anion Gap 13 mmol/L (10-20); BUN (Urea Nitrogen) 23 mg/dL (8.4-25.7); Calc. Creatinine Clearance 75 mL/min (70-130); Calcium 9.2 mg/dL (7.8-10.44); Carbon Dioxide 26 mmol/L (23-31); Chloride 101 mmol/L (98-107); Estimated GFR 95; Glucose 84 mg/dL (80-115); Potassium 3.5 mmol/L (3.5-5.1); Sodium 136 mmol/L (136-145)
[2022-11-13 09:38] LABS: Lactic Acid 0.7 mmol/L (0.5-2.2)
[2022-11-13] MEDS: Famotidine 20 MG TAB PO SCH ×2 (10:32→21:59)
[2022-11-13] MEDS: Multivit, Therapeutic 1 TAB PO SCH (10:33)
[2022-11-13] MEDS: Cyanocobalamin (Vitamin B-12) 1,000 MCG TAB PO SCH (10:33)
[2022-11-13] MEDS: Folic Acid 1 MG TAB PO SCH (10:33)
[2022-11-13] MEDS: Finasteride 5 MG TAB PO SCH (10:33)
[2022-11-13] MEDS: Magnesium Oxide 400 MG TAB PO SCH (10:33)
[2022-11-13] MEDS: Metoprolol Tartrate 100 MG TAB PO SCH ×2 (10:33→21:59)
[2022-11-13] MEDS: Aspirin 81 mg Enteric Coated Tablet PO SCH (10:34)
[2022-11-13] MEDS: Senokot S 8.6-50 MG TAB PO SCH ×2 (10:35→22:00)
[2022-11-13] MEDS: Lidocaine 5% Patch TD SCH (10:35)
[2022-11-13] MEDS: Polyethylene Glycol 3350 17 GM Packet PO SCH (10:35)
[2022-11-13] MEDS: Potassium Chloride 20 MEQ TAB PO SCH ×2 (10:39→10:43)
[2022-11-13] MEDS ORDERED: Warfarin Sodium 2.5 MG TAB PO SCH (17:00)
[2022-11-13] MEDS: Morphine 2 MG/ML VIAL SLOW IVP PRN (18:51)
[2022-11-13] MEDS: Gabapentin 300 MG CAP PO SCH (21:58)
[2022-11-13] MEDS: Ketorolac Tromethamine 30 MG/ML VIAL IVP PRN (21:59)
[2022-11-13] MEDS: Cholecalciferol 1,000 UNITS (25 MCG) TAB PO SCH (21:59)
[2022-11-13] MEDS: Atorvastatin Calcium 40 MG TAB PO SCH (21:59)
[2022-11-13] MEDS: Nicotine 14 MG PATCH TD SCH (22:01)
[2022-11-14] MEDS: Transdermal Patch Removal TOP SCH (00:29)
[2022-11-14] MEDS: Acetaminophen 325 MG TAB PO SCH ×4 (01:11→14:39)
[2022-11-14 05:12] LABS: INR-International Normal Ratio 2.3; Prothrombin Time 26.3 sec (12.0-14.7)
[2022-11-14 05:16] LABS: #Basophils 0.1 thou/uL (0.0-0.2); #Eosinphils 0.6 thou/uL (0.0-0.7); #Monocytes 0.9 thou/uL (0.11-0.59); #Neutrophils 7.9 thou/uL (1.40-6.50); %Basophils 0.5 % (0.0-1.0); %Lymphocytes 17.6 % (21.0-51.0); %Monocytes 7.7 % (0.0-10.0); %Neutrophils 69.3 % (42.0-75.0); Mean Corpuscular HGB CONC 33.8 g/dL (32.0-36.0); Mean Corpuscular Hemoglobin 32.1 pg (27.0-31.0); Mean Corpuscular Volume 95.1 fl (78.0-98.0); Mean Platelet Volume 8.1 fL (7.4-10.4); Platelet Count 420 10x3/uL (130-400); RBC Distribution Width 14.5 % (11.5-14.5); White Blood Cell (WBC) Count 11.4 10x3/uL (4.8-10.8)
[2022-11-14 05:30] LABS: Anion Gap 13 mmol/L (10-20); BUN (Urea Nitrogen) 26 mg/dL (8.4-25.7); Calc. Creatinine Clearance 72 mL/min (70-130); Calcium 8.8 mg/dL (7.8-10.44); Carbon Dioxide 23 mmol/L (23-31); Chloride 103 mmol/L (98-107); Estimated GFR 95; Glucose 139 mg/dL (80-115); Potassium 3.6 mmol/L (3.5-5.1); Sodium 135 mmol/L (136-145)
[2022-11-14] MEDS: Ketorolac Tromethamine 30 MG/ML VIAL IVP PRN ×2 (05:45→10:36)
[2022-11-14] MEDS: Finasteride 5 MG TAB PO SCH (09:23)
[2022-11-14] MEDS: Gabapentin 300 MG CAP PO SCH (09:23)
[2022-11-14] MEDS: Magnesium Oxide 400 MG TAB PO SCH (09:23)
[2022-11-14] MEDS: Metoprolol Tartrate 100 MG TAB PO SCH (09:23)
[2022-11-14] MEDS: Famotidine 20 MG TAB PO SCH (09:23)
[2022-11-14] MEDS: Cyanocobalamin (Vitamin B-12) 1,000 MCG TAB PO SCH (09:24)
[2022-11-14] MEDS: Aspirin 81 mg Enteric Coated Tablet PO SCH (09:24)
[2022-11-14] MEDS: Folic Acid 1 MG TAB PO SCH (09:24)
[2022-11-14] MEDS: Polyethylene Glycol 3350 17 GM Packet PO SCH (09:25)
[2022-11-14] MEDS: Multivit, Therapeutic 1 TAB PO SCH (09:25)
[2022-11-14] MEDS: Senokot S 8.6-50 MG TAB PO SCH (09:25)
[2022-11-14] MEDS: Lidocaine 5% Patch TD SCH (11:17)
[2022-11-14 12:02] VITALS: TEMP 98.2
[2022-11-14 12:46] VITALS: BP 133/63
[2022-11-14] MEDS ORDERED: Warfarin Sodium 5 MG TAB PO SCH (17:00)
[2022-11-15] MEDS ORDERED: Warfarin Sodium 7.5 MG TAB PO SCH (17:00)
== END 2022-11-14 14:30 | DRG 239 ==
LOC: ERS 15:31 → ERHOLD 18:07 → 2NO 10-02 15:40 → OBSVTOIN 10-03 16:43 → MSONC 10-06 17:47 → 2SW 10-21 12:20 → 2NO 10-30 20:48
PROVIDERS: ADMIT Student in an Organized Health Care Education/Training Program; ATTEND Hospitalist
PROC: 0QDL0ZZ Extraction of Right Tarsal, Open Approach (ICD-10-PCS; 2022-10-23)
PROC: 0Y6C0Z1 Detachment at Right Upper Leg, High, Open Approach (ICD-10-PCS; principal; 2022-11-01)
PROC: 0Y6S0Z1 Detachment at Left 2nd Toe, High, Open Approach (ICD-10-PCS; 2022-11-01)
DX: I70.262 Atherosclerosis of native arteries of extremities with gangrene, left leg (principal); L89.614 Pressure ulcer of right heel, stage 4; E87.1 Hypo-osmolality and hyponatremia; I48.20 Chronic atrial fibrillation, unspecified; L97.419 Non-pressure chronic ulcer of right heel and midfoot with unspecified severity; N39.0 Urinary tract infection, site not specified; Z16.24 Resistance to multiple antibiotics; I10 Essential (primary) hypertension; I48.91 Unspecified atrial fibrillation; I25.10 Atherosclerotic heart disease of native coronary artery without angina pectoris; F17.210 Nicotine dependence, cigarettes, uncomplicated; D64.9 Anemia, unspecified; E78.5 Hyperlipidemia, unspecified; E83.42 Hypomagnesemia; K59.00 Constipation, unspecified; L89.819 Pressure ulcer of head, unspecified stage; B96.5 Pseudomonas (aeruginosa) (mallei) (pseudomallei) as the cause of diseases classified elsewhere; Z20.822 Contact with and (suspected) exposure to COVID-19; Z79.84 Long term (current) use of oral hypoglycemic drugs; Z79.899 Other long term (current) drug therapy; Z79.82 Long term (current) use of aspirin; Z86.73 Personal history of transient ischemic attack (TIA), and cerebral infarction without residual deficits; Z95.1 Presence of aortocoronary bypass graft; Z95.5 Presence of coronary angioplasty implant and graft
CPT/HCPCS: 36415; 36416; 70450; 71045; 74018; 74176; 80048; 80053; 80170; 81001; 81015; 82550; 83605; 83735; 83880; 84100; 84443; 84484; 85025; 85027; 85610; 86140; 87040; 87070; 87077; 87086; 87186; 87205; 87811; 88305; 88307; 88311; 93005; 93010; 96361; 96372; 96374; 96375; 96376; 97139; G0378; J1100; J1170; J1580; J1650; J1885; J2270; J2272; J2370; J2405; J2704; J3010; J3475; J3490; J7030; J7050; L8460; S0020; U0002